=== PATIENT | male | born 1970 | race Caucasian/White ===

== ENCOUNTER 2023-06-20 15:40 | Outpatient (OUT) | payer OTHER, MEDICAID, SELFPAY ==
--- NOTE | 2023-06-20 15:56 | US_ITS ---
[address] [address] Patient Name: KATERYNA HERRING MRN: [id number] date: 1970 Sex: M Assigned Patient Location: Current Patient Location: Accession/Order Number: [id number] Exam Date: 06/20/2023 16:00 Report Date: 06/21/2023 07:06 At the request of: CECILY NUNES Procedure: US carotid duplex BI EXAMINATION: US carotid duplex BI HISTORY: bilateral Carotid bruits R09.89 COMPARISON: No relevant comparison available. TECHNIQUE: Duplex Doppler ultrasound analysis of carotid and vertebral arteries. . Bilateral carotid arterial duplex examination was performed using B-mode, color flow and spectral analysis. Carotid stenosis is reported according to validated velocity parameters, similar to NASCET criteria. FINDINGS: RIGHT CAROTID ARTERY Mild atherosclerotic plaque Subclavian: PSV: 241.2 cm/s cm/s EDV: 0.0 cm/s cm/s CCA: Prox: PSV: 130.7 cm/s cm/s EDV: 36.0 cm/s cm/s Mid: PSV: 112.2 cm/s cm/s EDV: 29.4 cm/s cm/s Distal: PSV: 69.8 cm/s cm/s EDV: 21.9 cm/s cm/s BULB: PSV: 59.4 cm/s cm/s EDV: 16.7 cm/s cm/s ICA: Prox: PSV: 116.0 cm/s cm/s EDV: 50.9 cm/s cm/s Mid: PSV: 136.2 cm/s cm/s EDV: 52.5 cm/s cm/s Distal: PSV: 143.1 cm/s cm/s EDV: 57.2 cm/s cm/s ECA: PSV: 159.3 cm/s cm/s EDV: 26.9 cm/s cm/s VERTEBRAL: PSV: 56.7 cm/s cm/s EDV: 14.9 cm/s cm/s, antegrade ICA/CCA ratio: PSV: 1.3 EDV: 1.9 LEFT CAROTID ARTERY Mild atherosclerotic plaque. 59% area stenosis in the carotid bulb Subclavian: PSV: 274.2 cm/s cm/s EDV: 14.0 cm/s CCA: Prox: PSV: 149.4 cm/s cm/s EDV: 32.3 cm/s Mid: PSV: 122.2 cm/s cm/s EDV: 38.6 cm/s Distal: PSV: 97.9 cm/s cm/s EDV: 31.7 cm/s BULB: PSV: 62.0 cm/s cm/s EDV: 20.6 cm/s ICA: Prox: PSV: 158.1 cm/s cm/s EDV: 48.2 cm/s Mid: PSV: 164.1 cm/s cm/s EDV: 63.8 cm/s Distal: PSV: 125.1 cm/s cm/s EDV: 52.6 cm/s ECA: PSV: 356.9 cm/s cm/s EDV: 56.5 cm/s VERTEBRAL: PSV: 49.4 cm/s cm/s EDV: 24.1 cm/s , antegrade ICA/CCA ratio: PSV: 1.3 EDV: 1.7 US/US carotid duplex BI IMPRESSION: 0-49% flow stenosis bilateral internal carotid arteries 59% area stenosis measured in the left carotid bulb Spectral Doppler US Thresholds (Reference: Pankaj EG, et al. Radiology 2000; 214:247-252) Stenosis (%) PSV (cm/sec) VICA/VCCA 0-49 <150 <2.5 50-69 150-225 2.5-4.0 >70 >225 >4.0 Electronically authenticated by: IRMA DU Date: 06/21/2023 07:06
[2023-06-20 16:13] LABS: Basophils Percent Auto 0.4 % (0.2-2.0); Eosinophils Absolute Auto 0.1 10^3/uL (0.0-0.7); Eosinophils Percent Auto 1.3 % (0.9-7.0); Hematocrit 44.8 % (42.0-54.0); Hemoglobin 15.7 g/dL (14.0-18.0); Immature Granulocytes Abs Auto 0.01 10^3/uL (0.00-0.03); Immature Granulocytes Pct Auto 0.1 % (0.0-0.5); Lymphocytes Percent Auto 24.5 % (20.5-60.0); Mean Corpuscular Hemoglobin 30.8 pg (25.9-34.0); Mean Corpuscular Volume 87.8 fL (80.0-94.0); Monocytes Absolute Auto 0.5 10^3/uL (0.3-0.8); Monocytes Percent Auto 5.9 % (1.7-12.0); Neutrophils Absolute Auto 5.5 10^3/uL (1.4-6.5); Neutrophils Percent Auto 67.8 % (43.0-75.0); Platelet Count 253 10^3/uL (150-450); Red Cell Distribution Width 12.7 % (11.0-15.0); White Blood Count 8.2 10^3/uL (4.0-11.0)
[2023-06-20 16:44] LABS: Alanine Aminotransferase 27 U/L (16-63); Albumin Level 3.7 g/dL (3.4-5.0); Alkaline Phosphatase 120 U/L (46-116); Anion Gap 9.8; Aspartate Amino Transferase 24 U/L (15-37); Bilirubin Total 0.9 mg/dL (0.2-1.0); Calcium 8.8 mg/dL (8.5-10.1); Carbon Dioxide 28.2 mmol/L (21.0-32.0); Chloride 107 mmol/L (98-107); Chol HDL Ratio 3.7; Cholesterol 163 mg/dL (<=200); Estimated GFR (African America >60 (>=60); Estimated GFR (Non-African Ame >60 (>=60); Globulin 3.7 g/dL; Glucose 81 mg/dL (74-106); HDL Cholesterol 44 mg/dL (40-60); LDL Cholesterol Calculated 107.2 mg/dL; Sodium 141 mmol/L (136-145); Total Protein 7.4 g/dL (6.4-8.2); Triglycerides 59 mg/dL (<=150); VLDL CHOLESTEROL 11.8 mg/dL
[2023-06-20 17:04] LABS: Prostate Specific Antigen Scrn 0.24 ng/mL (<=4.00)
== END 2023-06-20 15:41 | disposition home or self-care (01) ==
LOC: US 15:40
PROVIDERS: PCP Internal Medicine; Visit Provider Internal Medicine
DX: Z00.00 Encounter for general adult medical examination without abnormal findings (principal); R09.89 Other specified symptoms and signs involving the circulatory and respiratory systems; Z12.5 Encounter for screening for malignant neoplasm of prostate
CPT/HCPCS: 36415; 80053; 80061; 85025; 93880; G0103

== ENCOUNTER 2024-07-10 08:17 | Outpatient (OUT) | payer MEDICAID, SELFPAY ==
--- OUTSIDE RECORDS SUMMARY | 2024-07-10 08:22 | XMS_ITS | CCD ---
Author Organization [facility] Inform ion Partnership [facility] Care Team Providers Care Manager Fire Name Role Phone JAYDON, DR TONY Attending Unavailable JAYDON, DR TONY Consulting Unavailable JAYDON, DR TONY Admitting Unavailable ALBERTO, DR DENISE Gilliam Consulting Pedro Luis Arora Unavailable Pedro Luis Interiano MD Primary Care Provider AIDAN HEREDIA Attending AIDAN Mazariegos Attending Unavailable AIDAN HEREDIA Attending Unavailable PEDRO LUIS INTERIANO Primary Care Physician Amelia Adame Admitting Amelia Anderson Attending Lisbetha Amelia Abraham Referring Unavaila Lulu Perez Attending Unavailable Allergies Allergy Classification Reported Allergen(s) Allergy Type Date of Onset Reaction(s) Facility (3 sources) patient allergy list reviewed by nurse or physicia Propensity to adverse reactions 8 Comment:Done [facility]OP[facility] Other (2 sources) No Known Medication Allergies; Translations: [No Known Medication Allergies] Propensity to adverse reactions (disorder) [facility] Repository Medications Current Medications Medication Drug Class(es) Dates Sig (Normalized) Sig (Original) [id number] 200 actuat albuterol 0.09 mg/actuat metered dose inhaler (10 sources) beta2-Adrenergic Agonist Start: 06-03-2023 take 1 puff(s) by inhalation every four hours as needed albuterol HFA 90 mcg/act inhaler INHALE 1 PUFF INTO THE LUNGS EVERY 4 HOURS NEEDED FOR 30 DAYS 0 06/03/2023 Active take 1 puff(s) by in halation every four hours as needed Albuterol Sulfate HFA 108 (90 Base) MCG/ACT 1 puff as needed Inhalation every 4 hrs for 30 days Active take 1 puff(s) by in halation every four hours as needed Albuterol Sulfate HFA 108 (90 Base) MCG/ACT 1 puff as needed Inhalation every 4 hrs Active take 1 puff(s) by in halation every four hours as needed Albuterol Sulfate HFA 108 (90 Base) MCG/ACT 1 puff as needed Inhalation every 4 hrs Active albuterol HFA 90 mcg/inh MDI (2 sources) Start: 09-12-2020 albuterol HFA 90 mcg/inh MDI Refill(s) 0, 0 Refill(s), Shortness of breath or wheezing Start Date: 09/12/20 Status: Ordered Start: 09-12-2020 albuterol HFA 90 mcg/inh MDI Refill(s) 0, 0 Refill(s) Start Date: 09/12/20 Status: Ordered 60 actuat budesonide 0.08 mg/actuat / formoterol fumarate 0.0045 mg/actuat metered dose inhaler (12 sources) Corticosteroid, beta2-Adrenergic Agonist take 2 puff(s) by inhalation once daily Symbicort 80-4.5 MCG/ACT 2 puffs Inhalation Once a day Active take 1 puff(s) by [facility] every twelve hours Budesonide-Formoterol Fumarate 80-4.5 MC G/ACT INHALE 1 PUFF BY MOUTH EVERY 12 HOURS Active take 2 puff(s) by in halation once daily Symbicort 80-4.5 MCG/ACT 2 puffs Inhalat ion Once a day Active take 1 puff(s) by [facility] every twelve hours Budesonide-Formoterol Fumarate 80-4.5 MC G/ACT INHALE 1 PUFF BY MOUTH EVERY 12 HOURS for 60 Active budesonide-formoterol 80 mcg -4.5 mcg/inh Inh Aer w/adapter (2 sources) Start: 08-28-2021 budesonide-for moterol 80 mcg-4.5 mcg/inh Inh Aer w/adapter 2 puff(s), Inhalation, Refill(s) 0, 0 Refill(s), Shortness of breath or wheezing Start Date: 08/28/21 Status: Ordered Start: 08-28-2021 budesonide-for moterol 80 mcg-4.5 mcg/inh Inh Aer w/adapter Refill(s) 0, 0 Refill(s) Start Date: 08/28/21 Status: Ordered doxycycline hyclate 100 mg oral capsule (7 sources) Tetracycline-class Drug Start: 10-01-2022 take 1 capsule by mouth twice daily Doxycycline Hyclate 100 MG 1 capsule Orally twice daily for 7 days September, Active omeprazole 40 mg delayed release oral capsule (1 source) Proton Pump Inhibitor Start: 12-27-2023 take 1 capsule by mouth once daily omeprazole 40 mg Cap-DR 40 mg = 1 cap(s), Oral, Daily, # 90 cap(s), Refills(s) 3, Pharmacy: [facility]/pharmacy #[id number], 182, cm, 12/27/23 9:54:00 EDT, Height/Length Dosing, 96.1, kg, 12/27/23 9:54:00 EDT, Weight Dosing Start Date: 12/27/23 Status: Ordered ondansetron 4 mg disintegrating oral tablet (6 sources) Serotonin-3 Receptor Antagonist take 1 tablet by mouth every six hours as needed for nausea Ondansetron 4 MG 1 tablet on the tongue and allow to dissolve Orally every 6 hours as needed for nausea for 3 days Active pantoprazole 40 mg delayed release oral tablet (9 sources) Proton Pump Inhibitor Start: 09-10-[address] Tab 40 mg = 1 tab(s), Oral, Daily, Refills(s) 0, Control of stomach acid Start Date: 09/10/23 Status: Ordered take 1 tablet by dinora th every twenty-four hours Pantoprazole Sodium 40 MG 1 tablet Orall y Once a day Active PARoxetine hydrochloride 40 mg oral tablet (11 sources) Serotonin Reuptake Inhibitor Start: 09-10-2023 take 1 tablet by mouth once daily paroxetine 40 mg Tab 40 mg = 1 tab(s), Oral, Daily, Refills(s) 0 Start Date: 09/10/23 Status: Ordered Start: 03-28-2023 take 1 tablet by dinora th in the morning PARoxetine (Paxil) 40 MG tablet Take 40 mg by mouth in the morning. 0 03/28/2023 Active Completed/Discontinued Medications Medication Drug Class(es) Dates Sig (Normalized) Sig (Original) 24 hr metoprolol succinate 50 mg extended release oral tablet (9 sources) beta-Adrenergic Cherri Start: 09-09-2023 Toprol XL 50 mg Tab-ER 50 mg = 1 tab(s), Oral, Daily, 0 Refill(s), Refills(s) 0 Start Date: 09/09/23 Status: Ordered take 1 tablet by dinora every twelve hours Metoprolol Tartrate 50 MG 1 tablet with food Orally Twice a day Active Problems Active Problems Problem Classification Problem Date Documented Da te Episodic/Chronic Acute bronchitis (13 sources) Acute bronchitis due to other specified organisms; Translations: [Acute bronchitis] Onset: 6 Resolved: 1 Episodic Anxiety disorders (13 sources) Generalized anxiety disorder; Translations: [Generalized anxiety disorder] Chronic Asthma (6 sources) Uncomplicated asthma; Translations: [Unspecified asthma, uncomplicated] Onset: 4 Chronic Chronic obstructive pulmonary disease and bronchiectasis (20 sources) Mucopurulent chronic bronchitis; Translations: [Mucopurulent chronic bronchitis] Resolved: 1 Chronic Disorders of teeth and jaw (6 sources) Jaw pain; Translations: [Jaw pain] Episodic Esophageal disorders (20 sources) Gastroesophageal reflux disease without esophagitis; Translations: [Gastro-esophageal reflux disease without esophagitis] Onset: 4 Chronic Esophageal disorders (3 sources) Esophageal disorders; Translations: [Gastroesophageal reflux disease with esophagitis without hemorrhage] Essential hypertension (4 sources) Essential hypertension; Translations: [Essential (primary) hypertension] Chronic Gastrointestinal hemorrhage (3 sources) Hemorrhage of rectum and anus; Translations: [Hemorrhage of anus and rectum] Onset: 4 Episodic Mood disorders (20 sources) Major depression in remission; Translations: [Major depressive disorder, single episode, in full remission] Onset: 9 Chronic Other and unspecified benign neoplasm (3 sources) History of polyp of colon; Translations: [Personal history of colonic polyps] Onset: 4 Episodic Other and unspecified benign neoplasm (1 source) Polyp of colon; Translations: [Polyp of colon] Onset: 4 Episodic Other circulatory disease (3 sources) Thromboangiitis obliterans; 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 Other circulatory disease (1 source) 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 Other circulatory disease (1 source) Other specified symptoms and signs involving the circulatory and respiratory systems Episodic Other connective tissue disease (2 sources) Pain of toe of left foot; Translations: [Pain in left toe(s)] 06-28-2023 Episodic Other ear and sense organ disorders (6 sources) Otalgia; Translations: [Otalgia, right ear] Episodic Other lower respiratory disease (13 sources) H/O: respiratory disease; Translations: [Personal history of other diseases of the respiratory system] Episodic Other nervous system disorders (13 sources) Lesion of ulnar nerve; Translations: [Lesion of ulnar nerve, 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 Other nutritional; endocrine; and metabolic disorders (6 sources) Overweight; Translations: [Overweight] Episodic Other screening for suspected conditions (not mental disorders or infectious disease) (3 sources) Encounter for screening for malignant neoplasm of prostate; Translations: [Encounter for screening for malignant neoplasm of colon] Onset: Episodic Other skin disorders (2 sources) Ingrowing nail; Translations: [Ingrowing nail] 06-28-2023 Episodic Peripheral and visceral atherosclerosis (6 sources) Vascular disease of the skin; Translations: [Vascular disorder of skin] Onset: 6 Chronic Skin and subcutaneous tissue infections (2 sources) Abscess of toe of left foot; Translations: [Cutaneous abscess of left foot] 06-28-2023 Episodic Substance-related disorders (20 sources) Tobacco user; Translations: [Nicotine dependence, cigarettes, uncomplicated] Onset: 4 Chronic Unclassified (2 sources) Patient encounter status 09-10-2023 Past or Other Problems Problem Classification Problem Date Documented Da te Episodic/Chronic Bacterial infection; unspecified site (6 sources) Bacterial infectious disease; Translations: [Bacterial infection, unspecified, in conditions classified elsewhere and of unspecified site] Onset: 10-25-2015 Episodic Other lower respiratory disease (1 source) Personal history of other diseases of the respiratory system; Translations: [PERS HX OTH DZ RESPIRATORY SYSTEM] Onset: 12-01-2021 Episodic Other nutritional; endocrine; and metabolic disorders (12 sources) Body mass index 25-29 - overweight; Translations: [Body mass index 28.0-28.9, adult] Onset: 06-28-2017 Resolved: 12-05-2020 Episodic Other skin disorders (6 sources) Sebaceous cyst; Translations: [Sebaceous cyst] Onset: 04-02-2013 Episodic Other upper respiratory infections (6 sources) Acute pharyngitis; Translations: [Acute pharyngitis, unspecified] Onset: 12-14-2013 Episodic Residual codes; unclassified (12 sources) Tobacco user; Translations: [Tobacco use] Onset: 12-14-2013 Episodic Results Test Name Value Interpretation Reference Range Facility Provider Letteron 01-17-2024 Provider Letter Provider Letter January 17, 2024 KATERYNA HERRING [address] [place] [id number] : 1970 Dear Kateryna, We have been trying to reach you with no success. It is important that you return our call regarding your endoscopy procedure upon receiving this letter. Also, at the time of your call, please provide us with your current information. Thank you for your prompt attention to this matter. Sincerely, [facility] Patient Letter FTMCon 2023 Patient Letter [facility] Patient Letter [facility] January 03, 2024 KATERYNA HERRING [address] [place] [id number] : 1970 Below is a summary of the results of your recent colonoscopy. Your results have been sent to your primary care provider along with recommendations on when the procedure should be repeated. COLONOSCOPY WITH POLYP REMOVAL OR BIOPSY Type of polyp hyperplastic polyps - benign - not considered precancerous Based on your results we are recommending you repeat the procedure in 3 years Please contact the office with any further questions or concerns or if you wish to make an appointment. [facility] [phone] [facility] Reminderson 01-03-2024 Reminders Reminders From: Yumiko Dougherty I To: [facility] - Reminders/Recalls; Sent: 01/03/2024 10:09:06 EDT Show up: 10/25/2026 10:09:00 EDT Subject: Colonoscopy recall Reminder/Recall 3 year colonoscopy recall - h/o polyps Dr. 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 Note: IHC stains are negative for Helicobacter pylori. Appropriate controls are performed and reviewed. B: POLYP, CECUM, POLYPECTOMY: Hyperplastic polyp. C: POLYP, DESCENDING COLON, POLYPECTOMY: Hyperplastic polyp. D: POLYP, SIGMOID COLON, POLYPECTOMY: Fragments of hemorrhagic colonic mucosa consistent with hyperplastic polyp (Electronic Signature) Shad Shearer MD 12/31/2023 11:08 Clinical Information BRBPR, history of colon polyps, screening Pre-Op Diagnosis: BRBPR, history of colon polyps, screening Procedure: EGD, colonoscopy Post-Op Diagnosis: 1. Small internal and external hemorrhoids 2. 3 mm sessile polyp in the cecum, resected with cold snare completely and retrieved 3. 2 small polyps in the descending and sigmoid colon, 4-7 mm in size, resected with cold snare completely and retrieved 4. Normal examined terminal Specimen(s) Received A.Gastric biopsy B.Cecum colon polyp C.Descending colon polyp D.Sigmoid colon polyp Gross Description A: Received in formalin labeled with patient name, number, and gastric biopsy are three fragments of godinez/pink tissue ranging from 0.1 cm up to 0.3 cm in greatest dimension. Specimen is entirely submitted in one cassette. B: Received in formalin labeled with patient name, number, and cecum colon polyp are multiple fragments of godinez tissue ranging from less than 0.1 cm up to 0.2 cm in greatest dimension. Specimen is entirely submitted in one cassette. C: Received in formalin labeled with patient name, number, and descending colon polyp is a single fragment of godinez/pink tissue measuring 0.8 x 0.4 x 0.1 cm. Specimen is entirely submitted in one cassette. Surgical Pathology Report Collected Date/Time: 12/27/2023 10:19 EDT Pathologist: Shad Shearer MD Received Date/Time: 12/27/2023 11:24 EDT Deep DACOSTA, Amelia Lance MD Gross Description D: Received in formalin labeled with patient name, number, and sigmoid colon polyp are two fragments of godinez/pink tissue measuring 0.5 and 1 cm. Specimen is entirely submitted in one cassette. (DC) DC:MCA Microscopic Description Microscopic examination performed unless gross only specified. The use of one or more reagents in the above tests is regulated as an analyte specific reagent (ASR). The test or tests are ordered following initial H&E microscopic examination. The performance characteristics were determined by the [facility] of [facility]. They have not been cleared or approved by the US Food and Drug Administration. The FDA has determined that such clearance or approval is not necessary. These tests are used for clinical purposes. They should not be regarded as investigational or for research. Appropriate positive and negative controls are performed and are acceptable. [facility] Comment on above: Performed By: #### [id number] #### [facility] [address] [place] [address] Main OR Intraoperative Recor don 12-30-2023 Main OR Intraoperative Record Main OR Intraoperative Record IntraOp Document Type FT Summary Primary Physician: Amelia Adame MD Finalized Date/Time: 12/30/23 09:44:40 Pt. Name: KATERYNA HERRING/Sex: 1970 Male Med Rec #: [id number] Physician: Amelia Adame MD Financial #: [id number] Pt. Type: O Room/Bed: / Admit/Disch: 12/27/23 09:37:34 - 12/27/23 23:59:59 Institution: Case Times FT Entry 1 Patient Times In Room 12/27/23 10:10:00 Out Room 12/27/23 10:51:00 Procedure Times Start 12/27/23 10:14:00 Stop 12/27/23 10:48:00 Anesthesia Times Start 12/27/23 10:10:00 Stop 12/27/23 10:51:00 Time at Cecum 12/27/23 10:23:00 Last Modified By: Lavinia Leary RN 12/27/23 10:50:56 General Comments: EGD end time at 1018./YAO,RN Colonoscopy start time at 1020./KS,RN 12/30/23 Chart opened to review and send charges [facility]oth CSFA Case Attendance FT Entry 1 Entry 2 Entry 3 Case Attendee Geo RECOVERY RN, Mario Alberto Fisher, Cindy Taylor NURSING SUPPORT WORKER, Анна Dolan Role Performed RECOVERY RN Scrub - Primary Staff - Other Time In 12/27/23 10:10:00 12/27/23 10:10:00 12/27/23 10:10:00 Time Out 12/27/23 10:51:00 12/27/23 10:51:00 12/27/23 10:51:00 Procedure EGD AND COLONOSCOPY(.) EGD AND COLONOSCOPY(.) EGD AND COLONOSCOPY(.) Comments Dr. Morgan is supervising Last Modified By: Gibran SHARPE, Lavinia Leary RN, Lavinia Dougherty RN 12/27/23 10:50:57 12/27/23 10:50:57 12/27/23 10:50:57 Entry 4 Entry 5 Case Attendee Deep DACOSTA, Lavinia Goldman RN Role Performed Surgeon - Primary Emergency Crew Supervisor - Primary Time In 12/27/23 10:10:00 12/27/23 10:10:00 Time Out 12/27/23 10:51:00 12/27/23 10:51:00 Procedure EGD AND COLONOSCOPY(.) EGD AND COLONOSCOPY(.) Comments Dr. Morgan is supervising Last Modified By: Gibran SHARPE, Lavinia Doughrety RN 12/27/23 10:50:57 12/27/23 10:50:57 Perioperative Protocols FT Pre-Care Text: Implements protective measures prior to operative or invasive procedure, confirms identity before the operative or invasive procedure, verifies operative procedure, surgical site, and laterality Entry 1 Procedure(s) EGD AND COLONOSCOPY(.) Patient Identity Birthday, ID Band Verified (select at Check, Patient least 2): Participation Consents / H and P Anesthesia Consent, Operative Site N/A Verified H&P, Surgery/Procedure Marking Verified Consent Surgical Site No Laterality Verified n/a Verified Procedure Verified Yes Correct Patient Yes Position Verified Availability Equipment, Medication Prep Dry n/a Verified (If Applicable) PreOp Antibiotic No Time Out Mario Alberto Guardado CRNA, Given Participants Cindy Fisher, Brandon BRUCE, Deep Locke MD, Amelia Lipscomb, Lavinia Leary RN Time Out Complete 12/27/23 10:13:00 Outcomes Met? Yes Last Modified By: Lavinia Leary RN 12/27/23 10:13:40 Post-Care Text: The patient is free from signs and symptoms of injury caused by extraneous objects Allergy Information FT Pre-Care Text: Verifies allergies Entry 1 Allergies Reviewed? Yes Allergies Reviewed Self/Patient With Outcomes Met? Yes Last Modified By: Lavinia Leary RN 12/27/23 10:13:47 Post-Care Text: The patient received appropriate medication(s) safely administered during the perioperative period Surgical Procedures FT Entry 1 Procedure Description Procedure EGD AND COLONOSCOPY Modifiers . Surgeon Description EGD with gastric biopsy. Colonoscopy with cecal colon polypectomy, descending colon polypectomy and sigmoid colon polypectomy. Primary Procedure Yes Primary Surgeon Deep DACOSTA, Amelia Lipscomb Start 12/27/23 10:14:00 Stop 12/27/23 10:48:00 Anesthesia Type General Surgical Service Gastroenterology Wound Class 2 - Clean-Contaminated Last Modified By: Lavinia Leary RN 12/27/23 10:49:12 General Case Data FT Pre-Care Text: Classifies surgical wound, implements aseptic technique, initiates traffic control Entry 1 Case Information OR ENDO 1 FT Case Level Level 2 Wound Class 2 - Clean-Contaminated Specialty Gastroenterology ASA Class 2 Preop Diagnosis BRBPR, history of colon Postop Same As Preop No polyps, screening Postop Diagnosis EGD- Gastritis and Outcomes Met? Yes gastric body ulcers. Colonoscopy- AVM in ascending colon, cecal polyp, descending polyp, internal hemorrhoids, sigmoid colon polyp, external hemorrhoids. Last Modified By: Lavinia Leary RN 12/27/23 10:49:35 Post-Care Text: The patient is free from signs and symptoms of infection Skin Assessment (Pre Procedure) FT Pre-Care Text: Implements protective measures to prevent skin/ tissue injury due to thermal or mechanical sources Evaluates for signs and symptoms of physical injury to skin and tissue Entry 1 Skin Integrity Intact, Cushing, Warm, & Skin Abnormality No Dry Outcomes Met? Yes Last Modified By: Gibran SHARPE, Lavinia Bronson (more content not included)... [facility] Discharge Instructionson Discharge Instructions Discharge Instructions KATERYNA HERRING :1970 Visit Date:12/27/2023 Inpatient Discharge Instructions Your Care Team Admitting Physician - Amelia Adame MD Referring Physician - Amelia Adame MD Reason for Your Visit BRBPR, HX OF COLON POLYPS, SCREEN FOR COLON CANCER Your Diagnosis Chronic GERD Colon polyps Tests Performed Pathology Tissue Exam -- Results Pending -- Please visit your patient portal for your results or contact your primary care physician. This Is Your Medications List albuterol (albuterol HFA 90 mcg/inh MDI) budesonide-formoterol (budesonide-formoterol 80 mcg-4.5 mcg/inh Inh Aer w/adapter) metoprolol (Toprol XL 50 mg Tab-ER) omeprazole (omeprazole 40 mg Cap-DR) pantoprazole (Pantoprazole [address] Tab) paroxetine (paroxetine 40 mg Tab) Procedure History Colonoscopy (12/27/2023), Esophagogastroduodenoscopy (12/27/2023), Colonoscopy. What to do next Instructions From Your Doctor Event Name Event Result Discharge Activity Resume normal activities in 24 hours Discharge Restrictions No driving for 24 hrs Discharge Diet(s) Regular Call Your Doctor For Persistent or heavy bleeding Discharge Instructions Discharge Instructions New Follow Up Appointments after Discharge Follow Up with Deep DACOSTA, Amelia Lipscomb, [facility] When: Comments: Call for any problems. Office will call to schedule follow up appointment Where: Medications What How Much When Instructions Next Dose New omeprazole (omeprazole 40 mg Cap-DR) 1 Capsules By Mouth Every day Refills: 3 Pickup at [facility]/pharmacy #[id number] Unchanged albuterol (albuterol HFA 90 mcg/ inh MDI) 0 Refill(s) Unchanged budesonide-formoterol (budesonide-formoterol 80 mcg-4.5 mcg/ inh Inh Aer w/ adapter) 2 Puffs Inhalation 0 Refill(s) Unchanged metoprolol (Toprol XL 50 mg Tab-ER) 1 Tablets By Mouth Every day 0 Refill(s) Unchanged pantoprazole (Pantoprazole [address] Tab) 1 Tablets By Mouth Every day Unchanged paroxetine (paroxetine 40 mg Tab) 1 Tablets By Mouth Every day Pharmacy Information [facility]/pharmacy #[id number]: [address], [place] [phone] Test Results No qualifying data available. Allergies No Known Medication Allergies Problems Ongoing - Any problem that you are currently receiving treatment for. Acid reflux BRBPR (bright red blood per rectum) History of colon polyps Screen for colon cancer Education Materials Gastritis, Adult Gastritis is irritation and swelling (inflammation) of the stomach. There are two kinds of gastritis: ? Acute gastritis. This kind develops quickly. ? Chronic gastritis. This kind is much more common. It develops slowly and lasts for a long time. It is important to get help for this condition. If you do not get help, your stomach can bleed, and you can get sores (ulcers) in your stomach. What are the causes? This condition may be caused by: ? Germs that get to your stomach and cause an infection. ? Drinking too much alcohol. ? Medicines you are taking. ? Having too much acid in the stomach. ? Having a disease of the stomach. Other causes may include: ? An allergic reaction. ? Some cancer treatments (radiation). ? Smoking cigarettes or using products that contain nicotine or tobacco. In some cases, the cause of this condition is not known. What increases the risk? ? Having a disease of the intestines. ? Having Crohn's disease. ? Using aspirin or ibuprofen and other NSAIDs to treat other conditions. ? Stress. What are the signs or symptoms? ? Pain in your stomach. ? A burning feeling in your stomach. ? Feeling like you may vomit (nauseous). ? Vomiting or vomiting blood. ? Feeling too full after you eat. ? Weight loss. ? Bad breath. ? Blood in your poop (stool). In some cases, there are no symptoms. How is this treated? This condition is treated with medicines. The medicines that are used depend on what caused the condition. You may be given: ? Antibiotic medicine, if your condition was caused by an infection from germs. ? H2 blockers and similar medicines, if your condition was caused by too much acid in the stomach. Treatment may also include stopping the use of certain medicines, such as aspirin or ibuprofen. Follow these instructions at home: Medicines ? Take eapg-ugk-jecqxgx and prescription medicines only as told by your doctor. ? If you were prescribed an antibiotic medicine, take it as told by your doctor. Do not stop taking it even if you start to feel better. Alcohol use ? Do not drink alcohol if: ? Your doctor tells you not to drink. ? You are , may be , or are planning to become . ? If you drink alcohol: ? Limit your use to: ? 0?1 drink a day for women. ? 0?2 drinks a day for men. ? Know how much alcohol is in yo (more content not included)... [facility] Comment on above: Result Comment: Elec tronically Signed By: Wandy Cruz I\.br\Date and Time Signed: 12/27/23 11:04 EDT Inpatient Patient Summaryon 12-27-2023 Inpatient Patient Summary Inpatient Patient Summary [place] [id number] [facility] Clinical Discharge Instructions PERSON INFORMATION Name: KATERYNA HERRING [facility]#:[id number] PHYSICIANS Admitting Physician: Amelia Adame MD Attending Physician: Amelia Adame MD PCP: PEDRO LUIS INTERIANO DO Discharge Diagnosis: Chronic GERD; Colon polyps Comment: PATIENT EDUCATION INFORMATION Instructions: Medication Leaflets: Follow up: MEDICATION LIST Medications to Continue with No Changes Other Medications albuterol (albuterol HFA 90 mcg/inh MDI) 0 Refill(s). budesonide-formoterol (budesonide-formoterol 80 mcg-4.5 mcg/inh Inh Aer w/adapter) 2 Puffs Inhalation. 0 Refill(s). metoprolol (Toprol XL 50 mg Tab-ER) 1 Tablets By Mouth every day. 0 Refill(s). pantoprazole (Pantoprazole [address] Tab) 1 Tablets By Mouth every day. paroxetine (paroxetine 40 mg Tab) 1 Tablets By Mouth every day. Comment: [facility] Main OR PACU I Recordon Main OR PACU I Record Main OR PACU I Record PACU Phase I Document Type FT Summary Primary Physician: Amelia Adame MD Finalized Date/Time: 12/27/23 11:36:30 Pt. Name: ARTIE HERRINGTABITHA Corbett/Sex: 1970 Male Med Rec #: [id number] Physician: Amelia Adame MD Financial #: [id number] Pt. Type: O Room/Bed: / Admit/Disch: 12/27/23 09:37:34 - Institution: Case Times PACU I FT Pre-Care Text: Identifies barriers to communication and implements measures to provide psychological support Develops individualized plan of care, and ensures continuity of care Maintains patient's dignity and privacy, and maintains patient confidentiality Identifies and reports philosophical, cultural, and spiritual beliefs and values Identifies individual values and wishes concerning care Implements aseptic technique, and administers prescribed antibiotic therapy and immunizing agents as ordered Evaluates postoperative tissue perfusion Implements thermoregulation measures, and monitors body temperature Evaluates postoperative respiratory status Evaluates postoperative cardiac status Evaluates postoperative neurological status Assesses pain control, collaborated in initiating patient-controlled analgesia and implements alternative methods of pain control Verifies allergies, administers prescribed medications and solutions, evaluates response to medications Entry 1 In PACU I 12/27/23 10:55:00 Discharge from PACU 12/27/23 11:25:00 I Outcomes Met? Yes Last Modified By: Wandy Cruz I 12/27/23 11:36:15 Post-Care Text: The patient demonstrates knowledge of the expected response to the operative or invasive procedure The patient's care is consistent with the individualized perioperative plan of care The patient's right to privacy is maintained The patient's value system, lifestyle, ethnicity, and culture are considered, respected, and incorporated into the perioperative plan of care The patient participates in decisions affecting his or her perioperative plan of care The patient is free from signs and symptoms of infection The patient has wound/tissue perfusion consistent with or improved from baseline levels established preoperatively The patient is at or returning to normothermia at the conclusion of the immediate postoperative period The patient's respiratory function is consistent with or improved from baseline levels established preoperatively The patient's cardiovascular status is consistent with or improved from baseline levels established preoperatively The patient's cardiovascular status is consistent with or improved from baseline levels established preoperatively The patient demonstrates and/or reports adequate pain control throughout the perioperative period The patient received appropriate medication(s), safely administered during the perioperative period Acuity Level PACU I FT Entry 1 Start Time 12/27/23 10:55:00 Stop Time 12/27/23 11:25:00 Acuity Level Acuity Level I Last Modified By: Wandy Cruz I 12/27/23 11:36:27 Finalized By: Wandy Cruz I Document Signatures Signed By: Wandy Cruz I 12/27/23 11:36 [facility] Main OR Preoperative Recordo n 12-27-2023 Main OR Preoperative Record Main OR Preoperative Record Holding Area Document Type FT Summary Primary Physician: Amelia Adame MD Finalized Date/Time: 12/27/23 09:52:07 Pt. Name: KATERYNA HERRING/Sex: 1970 Male Med Rec #: [id number] Physician: Amelia Adame MD Financial #: [id number] Pt. Type: O Room/Bed: / Admit/Disch: 12/27/23 09:37:34 - Institution: Case Times Holding FT Pre-Care Text: Verifies consent for planned procedure, identifies individual values and wishes concerning care, includes family members in perioperative teaching Secures patient's records' belongings, and valuables, maintains patient's dignity and privacy, and maintains patient confidentiality Entry 1 In Holding 12/27/23 09:46:00 Outcomes Met? Yes Last Modified By: Eun Hayes RN 12/27/23 09:50:59 Post-Care Text: The patient participates in decisions affecting his or her perioperative plan of care The patient's right to privacy is maintained Surgery Checklist FT Entry 1 Patient Birthday, ID Band Procedure History and Physical, Identification: Check, Patient Verification: Surgical Consent, With Participation Patient NPO after Midnight: No Date/Time: 12/27/23 05:30:00 Results Reviewed clear yellow results Personal Items none Comments: Comment: Limitations: none Complaints of Pain: No Pain Comment: denies Operative Site n/a Marking: Availability Equipment Verified: Does Patient Smoke Yes If Yes to Smoking. 1 and half ppd Cigars or Cigarettes. How much per day? Patient states Yes Comment - Adult Son postop adult Supervision supervision available Case Cancelled in No Holding Area see comments below for reason Last Modified By: Eun Hayes RN 12/27/23 09:52:03 General Comments: Pt. NPO since bowel prep finished at 0530/AW RN Finalized By: Eun Hayes RN Document Signatures Signed By: Eun Hayes RN 12/27/23 09:52 [facility] Outpatient Surgery Discharge Instructionon 12-27-2023 Outpatient Surgery Discharge Instruction Outpatient Surgery Discharge Instruction [place] [id number] Patient Discharge Instructions PERSON INFORMATION Name: KATERYNA HERRING Date of : 1970 Current Date: 12/27/2023 10:09:33 PHYSICIANS Admitting Physician: Amelia Adame MD Discharge Diagnosis: Chronic GERD; Colon polyps KATERYNA HERRING has been given the following list of follow-up instructions, prescriptions, and patient education materials: PATIENT FOLLOW-UP INFORMATION Diet: Regular Discharge Activity: Resume normal activities in 24 hours Discharge Restrictions: No driving for 24 hrs Call Your Doctor For: Persistent or heavy bleeding IF UNABLE TO CONTACT YOUR PHYSICIAN AND YOU FEEL IT IS AN EMERGENCY, GO TO THE NEAREST EMERGENCY ROOM OR CALL 911 INEVAEH JEFFREY A, have received the attached patient education materials/instructions and have verbalized understanding: May we do a follow up call? Yes No I was present when discharge instructions were given _ Patient Signature Date Clinican/Nurse Signature Date Follow up: Pharmacy Information: You may receive a survey from Norah John asking you to rate your care experience. Your feedback is important and will help us understand what we do well and how we can improve the quality of care we provide to you, your loved ones and our community. It?s an honor to serve you. Thank you for choosing [facility] HERE ARE THE MEDICATION CHANGES THAT OCCURRED DURING YOUR HOSPITAL STAY Medications to Continue with No Changes Other Medications albuterol (albuterol HFA 90 mcg/inh MDI) 0 Refill(s). budesonide-formoterol (budesonide-formoterol 80 mcg-4.5 mcg/inh Inh Aer w/adapter) 2 Puffs Inhalation. 0 Refill(s). metoprolol (Toprol XL 50 mg Tab-ER) 1 Tablets By Mouth every day. 0 Refill(s). pantoprazole (Pantoprazole [address] Tab) 1 Tablets By Mouth every day. paroxetine (paroxetine 40 mg Tab) 1 Tablets By Mouth every day. PATIENT EDUCATION INFORMATION Instructions: Medication Leaflets: [place] Consent for Procedure/Surger yon 09-11-2023 Consent for Procedure/Surgery [id number] [place] Ambulatory Visit Summaryon 0 09-10-2023 Ambulatory Visit Summary KATERYNA HERRING :1970 Visit Date:09/10/2023 Ambulatory Visit Instructions Your Diagnosis History of colon polyps BRBPR (bright red blood per rectum) Screen for colon cancer Acid reflux Your Care Team Attending Physician - Lulu Silva CNP Primary Care Physician - PEDRO LUIS INTERIANO DO This Is Your Medications List Contact prescribing physician if questions or concerns albuterol (albuterol HFA 90 mcg/inh MDI) budesonide-formoterol (budesonide-formoterol 80 mcg-4.5 mcg/inh Inh Aer w/adapter) metoprolol (Toprol XL 50 mg Tab-ER) pantoprazole (Pantoprazole [address] Tab) paroxetine (paroxetine 40 mg Tab) Procedures Performed Colonoscopy. Discharge Vitals Temperature (Temporal Artery) 36.5 ?C Heart Rate (Peripheral) 62 Blood Pressure 128/66 Height 182.8 cm Height 72 in Weight 96.1 kg Weight 211.42 lb BMI 28.76 What to do next You Need to Schedule the Following Appointments Follow Up with Lulu Silva CNP When: Within 1 to 2 weeks Comments: Following colonoscopy. Where: Medications What When Instructions Unchanged albuterol (albuterol HFA 90 mcg/ inh MDI) 0 Refill(s) Contact prescribing physician if questions or concerns Unchanged budesonide-formoterol (budesonide-formoterol 80 mcg-4.5 mcg/ inh Inh Aer w/ adapter) 0 Refill(s) Contact prescribing physician if questions or concerns Unchanged metoprolol (Toprol XL 50 mg Tab-ER) 0 Refill(s) Contact prescribing physician if questions or concerns Unchanged pantoprazole (Pantoprazole [address] Tab) Contact prescribing physician if questions or concerns Unchanged paroxetine (paroxetine 40 mg Tab) Contact prescribing physician if questions or concerns Allergies No Known Medication Allergies Problems Ongoing - Any problem that you are currently receiving treatment for. Acid reflux BRBPR (bright red blood per rectum) History of colon polyps Screen for colon cancer Patient Survey You may receive a survey via text or e-mail asking about your office visit. Please share your experience with us by completing your survey. We appreciate your feedback and thank you for choosing us for your care. Education Materials Colonoscopy, Adult A colonoscopy is a procedure to look at the entire large intestine. This procedure is done using a long, thin, flexible tube that has a camera on the end. You may have a colonoscopy: ? As a part of normal colorectal screening. ? If you have certain symptoms, such as: ? A low number of red blood cells in your blood (anemia). ? Diarrhea that does not go away. ? Pain in your abdomen. ? Blood in your stool. A colonoscopy can help screen for and diagnose medical problems, including: ? An abnormal growth of cells or tissue (tumor). ? Abnormal growths within the lining of your intestine (polyps). ? Inflammation. ? Areas of bleeding. Tell your health care provider about: ? Any allergies you have. ? All medicines you are taking, including vitamins, herbs, eye drops, creams, and pbsr-lan-fjkmiqq medicines. ? Any problems you or family members have had with anesthetic medicines. ? Any bleeding problems you have. ? Any surgeries you have had. ? Any medical conditions you have. ? Any problems you have had with having bowel movements. ? Whether you are or may be . What are the risks? Generally, this is a safe procedure. However, problems may occur, including: ? Bleeding. ? Damage to your intestine. ? Allergic reactions to medicines given during the procedure. ? Infection. This is rare. What happens before the procedure? Eating and drinking restrictions Follow instructions from your health care provider about eating or drinking restrictions, which may include: ? A few days before the procedure: ? Follow a low-fiber diet. ? Avoid nuts, seeds, dried fruit, raw fruits, and vegetables. ? 1?3 days before the procedure: ? Eat only gelatin dessert or ice pops. ? Drink only clear liquids, such as water, clear juice, clear broth or bouillon, black coffee or tea, or clear soft drinks or sports drinks. ? Avoid liquids that contain red or purple dye. ? The day of the procedure: ? Do not eat solid foods. You may continue to drink clear liquids until up to 2 hours before the procedure. ? Do not eat or drink anything starting 2 hours before the procedure, or within the time period that your health care provider recommends. Bowel prep If you were prescribed a bowel prep to take by mouth (orally) to clean out your colon: ? Take it as told by your health care provider. Starting the day before your procedure, you will need to drink a large amount of liquid medicine. The liquid will cause you to have many bowel movements of loose stool until your stool becomes almost clear or light green. ? If your skin or the opening between the buttocks (deion (more content not included)... [facility] Gastroenterology Office/Clin ic Noteon 09-10-2023 Gastroenterology Office/Clinic Note Chief Complaint Colonoscopy HPI Staff This is a 53year old male who presents today to schedule a colonoscopy. Patient was referred by Dr Interiano. History of Present Illness Patient is a 53-year-old male who presents for referral from his PCP?Dr. Interiano for colonoscopy. PMH of HTN- managed by patient's PCP. Family history of colon cancer: Denies. Family history of colon polyps: Denies. Personal history of colon cancer: Denies. Personal history of colon polyps: Yes, per patient. Anticoagulation therapy: Denies. Antiplatelet therapy: Denies. During today's visit, patient reports he had previous EGD/Colonoscopy at various locations greater than 10 years ago. He reports on one of his colonoscopies, he recalls having a colon polyp. He reports most of the time when he has colonoscopy, he also has EGD. Reports hx. acid reflux for over 20 years. Is having 1 formed BM daily. Reports hx. hemorrhoids for years and will hard stools, will have BRBPR on toilet paper, occurring 2-3 times a week for years. Acid reflux is well-controlled with pantoprazole 40mg daily. Denies dysphagia, nausea/vomiting, black/bloody stools, abdominal pain, and denies unintentional weight loss. Review of Systems PHQ Score Initial Depression Screen Score: 0 SCORE ROS - Provider Constitutional: no fever, no chills. Skin: no Jaundice. ENMT: Denies dysphagia and heartburn. Respiratory: no shortness of breath. Cardiovascular: no chest pain. Gastrointestinal: no nausea, no vomiting, no diarrhea. Physical Exam Vitals & Measurements T: 36.5 ?C(Temporal Artery) HR: 62(Peripheral) BP: 128/66 HT: 72 in HT: 182.8 cm WT: 96.1 kg WT: 211.42 lb BMI: 28.76 General: Well developed, well nourished, in no acute distress Head: Normocephalic/atraumatic Lungs: Normal respiratory effort and clear to auscultation Cardio: Regular rate and rhythm, normal S1 and S2, no murmur, no rub Abdomen: Soft, non-distended, non-tender. Normoactive bowel sounds present in all 4 abdominal quadrants, bilaterally. Mental Status: Alert and oriented x3. Normal mood and affect Assessment/Plan 1. History of colon polyps (Z86.010: Personal history of colonic polyps) Reportedly had previous EGD/Colonoscopy at various locations greater than 10 years ago. He reports on one of his colonoscopies, he recalls having a colon polyp. Ordered Colonoscopy. Denies anticoagulation therapy. Ordered: Colonoscopy (Hospital Procedure) 2. BRBPR (bright red blood per rectum) (K62.5: Hemorrhage of anus and rectum) Reports hx. hemorrhoids for years and will hard stools, will have BRBPR on toilet paper, occurring 2-3 times a week for years. Ordered Colonoscopy. Educated regarding fiber supplementation daily. Patient to have rectal exam during colonoscopy while under deep sedation. Declines rectal exam today. Ordered: Colonoscopy (Hospital Procedure) 3. Screen for colon cancer (Z12.11: Encounter for screening for malignant neoplasm of colon) Ordered Colonoscopy. Denies anticoagulation therapy. Ordered: Colonoscopy (Hospital Procedure) 4. Acid reflux (K21.9: Gastro-esophageal reflux disease without esophagitis) Controlled with pantoprazole 40mg daily. Has had acid reflux for years. Previous EGD over 10 years ago. Ordered EGD to screen for mancini's esophagus given long-term acid reflux. Ordered: EGD Endoscopy (Hospital Procedure) Educated regarding miralax colon prep. Follow-up With When Contact Information Lulu Silva CNP Within 1 to 2 weeks Additional Instructions: Following colonoscopy. Patient Education Colonoscopy, Adult Problem List/Past Medical History Ongoing Acid reflux BRBPR (bright red blood per rectum) History of colon polyps Screen for colon cancer Historical No qualifying data Procedure/Surgical History Colonoscopy. Medications albuterol HFA 90 mcg/inh MDI budesonide-formoterol 80 mcg-4.5 mcg/inh Inh Aer w/adapter Pantoprazole [address] Tab paroxetine 40 mg Tab Toprol XL 50 mg Tab-ER Allergies No Known Medication Allergies Social History Tobacco 10 or more cigarettes (1/2 pack or more)/day in last 30 days Tobacco Use:. Never Smokeless Tobacco Use:. Cigarettes, 09/10/2023 Family History Heart murmur: Mother. [facility] Comment on above: Result Comment: Elec tronically Signed By: Lulu Silva CNP\.jairo\Date and Time Signed: 09/10/23 12:18 EDT Provider Letteron 08-28-2023 Provider Letter (Inserted Image. Charlene ble to display) August 28, 2023 KATERYNA HERRING [address] [place] [phone] : 1970 Dear Robin, We have been trying to reach you with no success. It is important that you return our call regarding your referral from Dr. Interiano to see [facility]. Please call the office upon receiving this letter to schedule a appointment. Also, at the time of your call, please provide us with your current information. Thank you for your prompt attention to this matter. Sincerely, [facility] [phone] [facility] CBC AUTO DIFFon 11-28-2021 BASO # 0.0 103/ul Normal 0.0-0.1 [facility] Comment on above: Performed By: #### C BC #### [facility] [address] [address] [address] Shirley Pandya Basophils/100 WBC (Bld) 0.5 % Normal 0.2-2.0 [facility] Comment on above: Performed By: #### C BC #### [facility] [address] [place] [address] Dr. Shirley Pandya EO # 0.2 103/ul Normal 0.0-0.7 [facility] Comment on above: Performed By: #### C BC #### [facility] [address] [address] [address] Shirley Pandya Eosinophils/100 WBC (Bld) 2.4 % Normal 0.9-7.0 [facility] Comment on above: Performed By: #### C BC #### [facility] [address] [place] [address] Dr. Shirley Pandya Erythrocyte distribution width (RBC) [Ratio] 12.8 % Normal 11.0-15.0 [facility] Comment on above: Performed By: #### C BC #### [facility] [address] [place] [address] Dr. Shirley Pandya Hematocrit (Bld) [Volume fraction] 47.3 % Normal 42.0-54.0 [facility] Comment on above: Performed By: #### C BC #### [facility] [address] [place] [address] Dr. Shirley Pandya Hemoglobin (Bld) [Mass/Vol] 16.2 g/dL Normal 14.0-18.0 [facility] Comment on above: Performed By: #### C BC #### [facility] [address] [place] [address] Dr. Shirley Pandya IG # 0.02 10e3/ul Normal 0.00-0.03 [facility] Comment on above: Performed By: #### C BC #### [facility] [address] [place] [address] Dr. Shirley Pandya IG % 0.3 % Normal 0.0-0.5 [facility] Comment on above: Performed By: #### C BC #### [facility] [address] [place] [address] Dr. Shirley Pandya LYMPH # 1.7 103/ul Normal 1.2-3.8 [facility] Comment on above: Performed By: #### C BC #### [facility] [address] [place] [address] Dr. Shirley Pandya Lymphocytes/100 WBC (Bld) 22.3 % Normal 20.5-60.0 [facility] Comment on above: Performed By: #### C BC #### [facility] [address] [place] [address] Dr. Shirley Pandya MANUAL DIFF REQ NO Normal [facility] Comment on above: Performed By: #### C BC #### [facility] [address] [place] [address] Dr. Shirley Pandya MCH (RBC) [Entitic mass] 30.0 pg Normal 25.9-34.0 [facility] Comment on above: Performed By: #### C BC #### [facility] [address] [place] [address] Dr. Shirley Pandya MCHC (RBC) [Mass/Vol] 34.2 g/dL Normal 29.9-35.2 [facility] Comment on above: Performed By: #### C BC #### [facility] [address] [address] [address] Shirley Pandya MCV (RBC) [Entitic vol] 87.6 fL Normal 80.0-94.0 [facility] Comment on above: Performed By: #### C BC #### [facility] [address] [address] [address] Shirley Pandya MONO # 0.5 103/ul Normal 0.3-0.8 [facility] Comment on above: Performed By: #### C BC #### [facility] [address] [place] [address] Dr. Shirley Pandya Monocytes/100 WBC (Bld) 6.6 % Normal 1.7-12.0 [facility] Comment on above: Performed By: #### C BC #### [facility] [address] [place] [address] Dr. Shirley Pandya NEUT # 5.1 103/ul Normal 1.4-6.5 [facility] Comment on above: Performed By: #### C BC #### [facility] [address] [place] [address] Dr. Shirley Pandya Neutrophils/100 WBC (Bld) 67.9 % Normal 43.0-75.0 [facility] Comment on above: Performed By: #### C BC #### [facility] [address] [place] [address] Dr. Shirley Pandya Platelet mean volume (Bld) [Entitic vol] 8.9 fL Critically low 9.5-13.5 [facility] Comment on above: Performed By: #### C BC #### [facility] [address] [place] [address] Dr. Shirley Pandya PLT 219 103/ul Normal 150-450 [facility] Comment on above: Performed By: #### C BC #### [facility] [address] [address] [address] Shirley Pandya RBC 5.40 106/ul Normal 4.70-6.10 [facility] Comment on above: Performed By: #### C BC #### [facility] [address] [place] [address] Dr. Shirley Pandya WBC 7.6 103/ul Normal 4.0-11.0 [facility] Comment on above: Performed By: #### C BC #### [facility] [address] [place] [address] Dr. Shirley Pandya PROF 14(COMP METB)on 022 Albumin [Mass/Vol] 3.6 g/dL Normal 3.4-5.0 [facility] Comment on above: Performed By: #### C MP #### [facility] [address] [place] [address] Dr. Shirley Pandya Albumin/Globulin [Mass ratio] 1.0 {ratio} Normal [facility] Comment on above: Performed By: #### C MP #### [facility] [address] [place] [address] Dr. Shirley Pandya ALP [Catalytic activity/Vol] 116 U/L Normal 46-116 [facility] Comment on above: Performed By: #### C MP #### [facility] [address] [place] [address] Dr. Shirley Pandya ALT [Catalytic activity/Vol] 24 U/L Normal 16-63 [facility] Comment on above: Performed By: #### C MP #### [facility] [address] [place] [address] Dr. Shirley Pandya Anion gap [Moles/Vol] 13.0 mmol/L Normal [facility] Comment on above: Performed By: #### C MP #### [facility] [address] [place] [address] Dr. Shirley Pandya AST [Catalytic activity/Vol] 16 U/L Normal 15-37 [facility] Comment on above: Performed By: #### C MP #### [facility] [address] [place] [address] Dr. Shirley Pandya Bilirubin [Mass/Vol] 0.3 mg/dL Normal 0.2-1.0 [facility] Comment on above: Performed By: #### C MP #### [facility] [address] [place] [address] Dr. Shirley Pandya Calcium [Mass/Vol] 8.7 mg/dL Normal 8.5-10.1 [facility] Comment on above: Performed By: #### C MP #### [facility] [address] [place] [address] Dr. Shirley Pandya Chloride [Moles/Vol] 105 mmol/L Normal 98-107 [facility] Comment on above: Performed By: #### C MP #### [facility] [address] [place] [address] Dr. Shirley Pandya CO2 [Moles/Vol] 28.9 mmol/L Normal 21.0-32.0 [facility] Comment on above: Performed By: #### C MP #### [facility] [address] [place] [address] Dr. Shirley Pandya Creatinine [Mass/Vol] 1.16 mg/dL Normal 0.70-1.30 [facility] Comment on above: Performed By: #### C MP #### [facility] [address] [place] [address] Dr. Shirley Pandya EGFR-AF CENTRAL AFRICAN >60 Normal >=60 [facility] Comment on above: Performed By: #### C MP #### [facility] [address] [place] [address] Dr. Shirley Pandya EGFR-NON AF CENTRAL AFRICAN >60 Normal >=60 [facility] Comment on above: Performed By: #### C MP #### [facility] [address] [place] [address] Dr. Shirley Pandya Globulin (S) [Mass/Vol] 3.5 g/dL Normal [facility] Comment on above: Performed By: #### C MP #### [facility] [address] [place] [address] Dr. Shirley Pandya Glucose [Mass/Vol] 102 mg/dL Normal 74-106 [facility] Comment on above: Performed By: #### C MP #### [facility] [address] [place], [place] [address] Dr. Shirley Pandya Potassium [Moles/Vol] 3.9 mmol/L Normal 3.5-5.1 [facility] Comment on above: Performed By: #### C MP #### [facility] [address] [place], [place] [address] Dr. Shirley Pandya Protein [Mass/Vol] 7.1 g/dL Normal 6.4-8.2 [facility] Comment on above: Performed By: #### C MP #### [facility] [address] [place], [place] [address] Dr. Shirley Pandya Sodium [Moles/Vol] 143 mmol/L Normal 136-145 [facility] Comment on above: Performed By: #### C MP #### [facility] [address] [place], [place] [address] Dr. Shirley Pandya Urea nitrogen [Mass/Vol] 11.0 mg/dL Normal 7.0-18.0 [facility] Comment on above: Performed By: #### C MP #### [facility] [address] [place], [place] [address] Dr. Shirley Pandya Urea nitrogen/Creatinine [Mass ratio] 9.5 mg/mg Normal [facility] Comment on above: Performed By: #### C MP #### [facility] [address] [place], [place] [address] Dr. Shirley Pandya XR CHEST 2 Von 11-28-2021 XR CHEST 2 V EXAMINATION: XR CHES T 2 V HISTORY: H/O: respiratory disease ; acute back pain; prior lung surgery COMPARISON: No relevant comparison available. FINDINGS: LUNGS: Right lung is hyperexpanded and clear. Left lung is clear, but there is blunting of the left lateral and posterior costophrenic angles. VASCULATURE: No increased pulmonary vasculature. PLEURA: No pneumothorax or pleural thickening. Left pleural effusion cannot be excluded. CARDIAC: No cardiomegaly or cardiac silhouette abnormality. MEDIASTINUM: No visible mass or adenopathy. BONES: No fracture or visible bone lesion. OTHER: Negative. IMPRESSION: 1. No pulmonary infiltrates. 2. Hyper expanded right lung; exaggerated inspiratory effort versus COPD. 3. Blunting of left costophrenic angles typically associated with small pleural effusion. Patient's history describes prior lung surgery , and this may represent chronic changes from lung surgery. No comparison studies. Electronically authenticated by: DENISE DOMINGUEZ Date: 2021-11-28 09:00 Normal [facility] CBC Without Differentialon 1 06-30-2020 Erythrocyte distribution width (RBC) [Ratio] 13.4 % Normal 12.0-14.8 [facility] Comment on above: Performed By: #### C BCNOOUTREACH, PSA OUTREACH, OUTREACH CMP, OUTREACH LIPID #### [address] Hematocrit (Bld) [Volume fraction] 45.7 % Normal 38.8-50.0 [facility] Comment on above: Performed By: #### C BCNOOUTREACH, PSA OUTREACH, OUTREACH CMP, OUTREACH LIPID #### [address] Hemoglobin (Bld) [Mass/Vol] 16.0 g/dL Normal 13.0-17.0 [facility] Comment on above: Performed By: #### C BCNOOUTREACH, PSA OUTREACH, OUTREACH CMP, OUTREACH LIPID #### [address] MCH (RBC) [Entitic mass] 30.6 pg Normal 27.5-35.2 [facility] Comment on above: Performed By: #### C BCNOOUTREACH, PSA OUTREACH, OUTREACH CMP, OUTREACH LIPID #### [address] MCV (RBC) [Entitic vol] 87.6 fL Normal 83.5-101 [facility] Comment on above: Performed By: #### C BCNOOUTREACH, PSA OUTREACH, OUTREACH CMP, OUTREACH LIPID #### [address] Mean Corpuscular HGB Conc 35.0 g/dL Normal 32.5-35.6 [facility] Comment on above: Performed By: #### C BCNOOUTREACH, PSA OUTREACH, OUTREACH CMP, OUTREACH LIPID #### [address] Platelet mean volume (Bld) [Entitic vol] 7.3 fL Normal 6.6-10.1 [facility] Comment on above: Result Comment: PERF ORMED BY: [place] [address] PATHOLOGIST [employer] SUPERINTENDENT EMANUEL NELSON M.D. Performed By: #### C BCNOOUTREACH, PSA OUTREACH, OUTREACH CMP, OUTREACH LIPID #### [address] Platelets (Bld) [#/Vol] 271 10*3/uL Normal 150-450 [facility] Comment on above: Performed By: #### C BCNOOUTREACH, PSA OUTREACH, OUTREACH CMP, OUTREACH LIPID #### [address] RBC (Bld) [#/Vol] 5.22 10*6/uL Normal 3.90-5.60 [facility] Comment on above: Performed By: #### C BCNOOUTREACH, PSA OUTREACH, OUTREACH CMP, OUTREACH LIPID #### [address] WBC (Bld) [#/Vol] 7.0 10*3/uL Normal 4.1-10.5 [facility] Comment on above: Performed By: #### C BCNOOUTREACH, PSA OUTREACH, OUTREACH CMP, OUTREACH LIPID #### [address] CMP Outreachon 04-29-2021 Albumin [Mass/Vol] 3.7 g/dL Normal 3.2-5.5 [facility] Comment on above: Performed By: #### C BCNOOUTREACH, PSA OUTREACH, OUTREACH CMP, OUTREACH LIPID #### [address] ALP [Catalytic activity/Vol] 87 U/L Normal 32-92 [facility] Comment on above: Performed By: #### C BCNOOUTREACH, PSA OUTREACH, OUTREACH CMP, OUTREACH LIPID #### [address] [place] [address] [place] ALT [Catalytic activity/Vol] 18 U/L Normal 10-60 [facility] Comment on above: Performed By: #### C BCNOOUTREACH, PSA OUTREACH, OUTREACH CMP, OUTREACH LIPID #### [facility] [address] [place] [address] [place] AST [Catalytic activity/Vol] 19 U/L Normal 10-42 [facility] Comment on above: Performed By: #### C BCNOOUTREACH, PSA OUTREACH, OUTREACH CMP, OUTREACH LIPID #### [facility] [address] [place] [address] [place] Bilirubin [Mass/Vol] 0.3 mg/dL Normal 0.3-1.2 [facility] Comment on above: Performed By: #### C BCNOOUTREACH, PSA OUTREACH, OUTREACH CMP, OUTREACH LIPID #### [facility] [address] [place] [address] [place] Calcium [Mass/Vol] 9.1 mg/dL Normal 8.2-10.2 [facility] Comment on above: Performed By: #### C BCNOOUTREACH, PSA OUTREACH, OUTREACH CMP, OUTREACH LIPID #### [facility] [address] [place] [address] [place] Chloride [Moles/Vol] 106 mmol/L Normal 95-114 [facility] Comment on above: Performed By: #### C BCNOOUTREACH, PSA OUTREACH, OUTREACH CMP, OUTREACH LIPID #### [facility] [address] [place] [address] [place] CO2 [Moles/Vol] 22.9 mmol/L Normal 22.0-30.0 [facility] Comment on above: Performed By: #### C BCNOOUTREACH, PSA OUTREACH, OUTREACH CMP, OUTREACH LIPID #### [facility] [address] [place] [address] [place] Creatinine [Mass/Vol] 1.01 mg/dL Normal 0.64-1.27 [facility] Comment on above: Performed By: #### C BCNOOUTREACH, PSA OUTREACH, OUTREACH CMP, OUTREACH LIPID #### [facility] [address] [place] [address] [place] Estimated GFR ( Padmini > 60 Normal [facility] Comment on above: Result Comment: GFR estimated reference range: According to KDOQI guidelines, <60 ml/min/1.73m2 is sufficient to diagnose a patient with chronic kidney disease. Performed By: #### C BCNOOUTREACH, PSA OUTREACH, OUTREACH CMP, OUTREACH LIPID #### [facility] [address] [place] [id number] [place] Estimated GFR (Non- Am > 60 Normal [facility] Comment on above: Performed By: #### C BCNOOUTREACH, PSA OUTREACH, OUTREACH CMP, OUTREACH LIPID #### [facility] [address] [place] [address] [place] Glucose [Mass/Vol] 99 mg/dL Normal 70-100 [facility] Comment on above: Result Comment: [place] Glucose Reference Range is dependent on time and content of last meal. Glucose of more than 200 mg/dL in a nonstressed, ambulatory subject supports the diagnosis of Diabetes Mellitus. ADA recommended reference range Performed By: #### C BCNOOUTREACH, PSA OUTREACH, OUTREACH CMP, OUTREACH LIPID #### [facility] [address] [place] [phone] [place] Potassium [Moles/Vol] 4.1 mmol/L Normal 3.5-5.1 [facility] Comment on above: Performed By: #### C BCNOOUTREACH, PSA OUTREACH, OUTREACH CMP, OUTREACH LIPID #### [facility] [address] [place] [phone] [place] Protein [Mass/Vol] 6.7 g/dL Normal 6.1-7.9 [facility] Comment on above: Performed By: #### C BCNOOUTREACH, PSA OUTREACH, OUTREACH CMP, OUTREACH LIPID #### [facility] [address] [place] [phone] [place] Sodium [Moles/Vol] 139 mmol/L Normal 136-146 [facility] Comment on above: Performed By: #### C BCNOOUTREACH, PSA OUTREACH, OUTREACH CMP, OUTREACH LIPID #### [facility] [address] [place] [phone] [place] Urea nitrogen [Mass/Vol] 11 mg/dL Normal 9-23 [facility] Comment on above: Performed By: #### C BCNOOUTREACH, PSA OUTREACH, OUTREACH CMP, OUTREACH LIPID #### [facility] [address] [place] [phone] [facility] Lipid Profile Outreachon Cholesterol [Mass/Vol] 173 mg/dL Normal 140-200 [facility] Comment on above: Result Comment: Chol less than 200 mg/dl low risk Chol 201-239 mg/dl borderline risk Chol 240 mg/dl and greater high risk Performed By: #### C BCNOOUTREACH, PSA OUTREACH, OUTREACH CMP, OUTREACH LIPID #### [facility] [address] Cholesterol in HDL [Mass/Vol] 34 mg/dL Normal 29-71 [facility] Comment on above: Result Comment: HDL CHOL ATP-III CLASSIFICATION Cardiovascular Risk HDL > or equal to 60 mg/dL LOW HDL < 40 mg/dL HIGH Performed By: #### C BCNOOUTREACH, PSA OUTREACH, OUTREACH CMP, OUTREACH LIPID #### [facility] [address] Cholesterol.total/C holesterol in HDL [Mass ratio] 5.1 {ratio} Normal <5.0 [facility] Comment on above: Result Comment: PERF ORMED BY: [place] [address] PATHOLOGIST [employer]ATION SUPERINTENDENT EMANUEL NELSON M.D. Performed By: #### C BCNOOUTREACH, PSA OUTREACH, OUTREACH CMP, OUTREACH LIPID #### [facility] [address] LDL Cholesterol,Calcula ximena 124 mg/dL High 0-100 [facility] Comment on above: Result Comment: LDL ATP III CLASSIFICATION LDL less than 100 mg/dL Optimal LDL 100-129 mg/dL Near or above optimal LDL 130-159 mg/dL Borderline high LDL 160-189 mg/dL High LDL greater than 189 mg/dL Very high Performed By: #### C BCNOOUTREACH, PSA OUTREACH, OUTREACH CMP, OUTREACH LIPID #### [facility] [address] [place] [address] [place] Triglyceride w/Reflex 77 mg/dL Normal 35-149 [facility] Comment on above: Result Comment: TRIG ATP III CLASSIFICATION TRIG less than 150 mg/dL Normal TRIG 150-199 mg/dL Borderline high TRIG 200-500 mg/dL High TRIG greater than 500 mg/dL Very high Standard traceable to the Center for Disease Conrtrol and Prevention (CDC) test method. Performed By: #### C BCNOOUTREACH, PSA OUTREACH, OUTREACH CMP, OUTREACH LIPID #### [facility] [address] VLDL CHOLESTEROL 15 mg/dL Normal [facility] Comment on above: Performed By: #### C BCNOOUTREACH, PSA OUTREACH, OUTREACH CMP, OUTREACH LIPID #### [facility] [address] PSA Total Community Outreach on 04-29-2021 PSA Total Community Outreach 0.350 ng/mL Normal 0.000-4.000 [facility] Comment on above: Result Comment: PERF ORMED BY: [facility] [address] [place] [address] PATHOLOGIST STATION SUPERINTENDENT EMANUEL NELSON M.D. Performed By: #### C BCNOOUTREACH, PSA OUTREACH, OUTREACH CMP, OUTREACH LIPID #### [facility] [address] Vital Signs Date Time Vital Sign Value Performing Clinician Facility 12-27-2023 11:20-0400 Diastolic blood pressure 54 mm[Hg] Cisneros Sarmini [facility] 12-27-2023 11:20-0400 Heart rate 52 /min Cisneros Sarmini [facility] 12-27-2023 11:20-0400 Mean blood pressure 73 mm[Hg] Cisneros Sarmini [facility] 12-27-2023 11:20-0400 Respiratory rate 20 /min Cisneros Sarmini [facility] 12-27-2023 11:20-0400 SaO2% (BldA) [Mass fraction] 97 % Cisneros Sarmini [facility] 12-27-2023 11:20-0400 Systolic blood pressure 110 mm[Hg] Cisneros Sarmini [facility] 12-27-2023 11:10-0400 Diastolic blood pressure 47 mm[Hg] Cisneros Sarmini [facility] 12-27-2023 11:10-0400 Heart rate 54 /min Cisneros Sarmini [facility] 12-27-2023 11:10-0400 Mean blood pressure 68 mm[Hg] Cisneros Sarmini [facility] 12-27-2023 11:10-0400 Respiratory rate 14 /min Cisneros Sarmini [facility] 12-27-2023 11:10-0400 SaO2% (BldA) [Mass fraction] 96 % Cisneros Sar[facility] 12-27-2023 11:10-0400 Systolic blood pressure 110 mm[Hg] Cisneros Sarmini [facility] 12-27-2023 11:05-0400 Diastolic blood pressure 56 mm[Hg] Cisneros Sarmini [facility] 12-27-2023 11:05-0400 Heart rate 56 /min Cisneros Sarmini [facility] 12-27-2023 11:05-0400 Mean blood pressure 76 mm[Hg] Cisneros Sarmini [facility] 12-27-2023 11:05-0400 Respiratory rate 19 /min Cisneros Sarmini [facility] 12-27-2023 11:05-0400 SaO2% (BldA) [Mass fraction] 95 % Cisneros Sarmini [facility] 12-27-2023 11:05-0400 Systolic blood pressure 116 mm[Hg] Cisneros Sarmini [facility] 12-27-2023 10:55-0400 Body temperature 98.24 [degF] Cisneros Sarmini [facility] 12-27-2023 09:54-0400 Blood Pressure Location Cisneros Rosemarymini [facility] 12-27-2023 09:54-0400 Body temperature 96.8 [degF] Cisneros Rosemary[facility] 09-10-2023 11:57-0400 Blood Pressure Location Lulusrikanth PortilloRicardo [facility] 09-10-2023 11:57-0400 Body temperature 97.7 [degF] Lulu Ricardo [facility] 09-10-2023 11:57-0400 Diastolic blood pressure 66 mm[Hg] Lulu Ricardo [facility] 09-10-2023 11:57-0400 Heart rate 62 /min Lulu Ricardo [facility] 09-10-2023 11:57-0400 Systolic blood pressure 128 mm[Hg] Lulu Ricardo [facility] 06-28-2023 11:28-0500 Body height 182.9 cm Aidan CHAVEZ Work Phone: [facility] 02-02-2024 11:28-0500 Body mass index (BMI) [Ratio] 27.8 kg/m2 Aidan Heredia DPM [facility] Work Phone: [facility] 06-28-2023 11:28-0500 Body weight 92.99 kg Aidan Heredia DPM [facility]AC[facility]AS Work Phone: [facility] 06-28-2023 11:28-0500 Diastolic blood pressure 75 mm[Hg] Aidan Heredia DPM [facility]AC[facility] Work Phone: [facility] 06-28-2023 11:28-0500 Heart rate 75 /min Aidan Heredia DPM [facility] Work Phone: [facility] 06-28-2023 11:28-0500 Systolic blood pressure 127 mm[Hg] Aidan Heredia DPM [facility]AC[facility]AS Work Phone: [facility] 05-28-2023 14:00-0500 Body height 182.88 cm Pedro Luis Ball Other [facility] Other 05-28-2023 14:00-0500 Body mass index (BMI) [Ratio] 28.78 kg/m2 Pedro Luis Ball Other [facility] Other 05-28-2023 14:00-0500 Body weight 96.25 kg Pedro Luis Ball Other [facility] Other 05-28-2023 14:00-0500 Diastolic blood pressure 84 mm[Hg] Pedro Luis Ball Other [facility] Other 05-28-2023 14:00-0500 Respiratory rate 12 /min Pedro Luis Ball Other [facility] Other 05-28-2023 14:00-0500 Systolic blood pressure 146 mm[Hg] Pedro Luis Ball Other [facility] Other Encounters Encounter Date Encounter Type Care Provider Facility Start: 12-27-2023 End: 12-27-2023 ambulatory Amelia Adame Facility:[facility] Start: 12-27-2023 End: 12-27-2023 Patient encounter procedure Amelia Adame [facility] Start: 09-10-2023 End: 09-10-2023 ambulatory Lulu Silva Facility:[facility] Start: 09-10-2023 End: 09-10-2023 Patient encounter procedure Lulu Silva [facility] Start: 08-26-2023 [facility]ulatory [facility] Start: 07-12-2023 End: 07-12-2023 ambulatory AIDAN D DOLCE Not Available Start: 06-28-2023 Bamboo flowsheet Aidan D Dolce DPM FACFAS Work Phone: [facility] Start: 06-28-2023 Bamboo flowsheet Aidan D Dolce DPM [facility]AC[facility]AS Work Phone: [facility] Start: 06-28-2023 End: 06-28-2023 ambulatory AIDAN D DOLCE Not Available Start: 06-28-2023 End: 06-28-2023 Office outpatient visit 15 minutes Aidan D Dolce DPM [facility]AC[facility] Work Phone: [facility] Comment on above: Abscess, toe, left ( Primary Dx); Onychocryptosis; Pain in left toe(s) Start: 06-24-2023 End: 06-24-2023 ambulatory Pedro Luis Interiano Other [facility] Other Start: 06-24-2023 Telephone encounter Pedro Luis [facility]cer [facility] Start: 06-14-2023 End: 06-14-2023 ambulatory AIDAN D DOLCE Not Available Start: 06-07-2023 End: 06-07-2023 ambulatory Pedro Luis Interiano Other [facility] Other Start: 06-07-2023 Telephone encounter Pedro Luis Interiano [facility] Start: 05-28-2023 End: 05-28-2023 ambulatory Pedro Luis [facility] Other [facility] Other Start: 05-28-2023 Encounter for genera l adult medical examination without abnormal findings Pedro Luis Interiano [facility] Start: 05-28-2023 Periodic preventive med est patient 40-64yrs Pedro Luis Interiano [facility] Start: 05-05-2023 End: 05-05-2023 ambulatory Pedro Luis Interiano Other [facility] Other Start: 05-05-2023 Telephone encounter Pedro Luis CHAPPELL [facility] Start: 03-13-2023 End: 03-13-2023 ambulatory Pedro Luis Interiano Other [facility] Other Start: 03-13-2023 Telephone encounter Pedro Luis Interiano [facility] Start: 12-31-2022 End: 12-31-2022 ambulatory Pedro Luis Interiano Other [facility] Other Start: 12-31-2022 Telephone encounter Pedro Luis Interiano [facility] Start: 10-01-2022 End: 10-01-2022 ambulatory Pedro Luis [facility] Other [facility] Other Start: 10-01-2022 Office outpatient vi sit 15 minutes Pedro Luis Interiano [facility] Start: 12-01-2021 Encounter for genera l adult medical examination without abnormal findings DR PEDRO LUIS INTERIANO [facility] Start: 11-28-2021 End: 11-29-[address] PEDRO LUIS INTERIANO Facility:[facility] Start: 11-28-2021 End: 11-29-2021 Encounter for general adult medical examination without abnormal findings DR PEDRO LUIS INTERIANO Facility:[facility] Start: 11-15-2021 Adult health examination Pedro Luis Interiano Other [facility] Other Procedures Date Procedure Procedure Detail Performing Clinician Start: 12-27-2023 Colonoscopy Amelia Adame Start: 12-27-2023 Esophagogastroduodenoscopy Amelia sampson Start: 11-13-2018 End: 12-05-2020 Screening for malignant neoplasm of colon Pedro Luis Interiano Other Colonoscopy Lulu Silva Comment on above: Per patient over 10 years ago. Plan of Treatment Date Care Activity Detail Author Start: 07-12-2023 End: 07-12-2023 Patient encounter procedure 07/12/2023 11:10 AM EST Office Visit [facility] [address] [place] [id number] Aidan Heredia, DPM [facility] [address] [place] [address] [facility] Start: 06-28-2023 End: 06-28-2023 Patient encounter procedure 06/28/2023 11:30 AM EST Office Visit [facility] [address] [place] [phone] Aidan Heredia, DPM [facility] [address] [place] [address] Arrived [facility] Comment on above: Arrived Start: 1970 Screening for malign ant neoplasm of colon [facility] Immunizations Immunization Date Immunization Notes Care Provider Fa cili 03-11-2020 influenza virus vaccine, split virus (incl. purified surface antigen) Pedro Luis Interiano Other [facility] Other 04-08-2019 influenza virus vaccine, split virus (incl. purified surface antigen) Pedro Luis Interiano Other [facility] Other 04-08-2019 pneumococcal polysaccharide vaccine, 23 valent Pedro Luis Interiano Other [facility] Other Payers Date Payer Category Payer [facility] [id number] 2023 Unknown [employer] [id number] 2023-Present [phone] [address] [place] [address] [id number] 2023 Private Health Insurance [id number] 1968 Unknown [id number] 1968 Unknown [id number] 1968 Unknown [id number] 1968 Unknown [id number] 1968 Unknown [id number] 1968 Unknown [id number] 1968 Unknown [id number] 1959 Unknown [id number] Unknown [id number] Social History Date Type Detail Facility Start: 06-14-2023 End: 06-28-2023 Sex Assigned [facility] Start: 06[facility]14-[facility]23 [facility] History of tobacco use Cigarette Smoker [facility] Start: 06-14-2023 Tobacco use and exposure Smokeless tobacco non-user [facility] Start: 06-14-2023 End: 06-28-2023 Alcohol intake Defer [facility] Start: 06-14-2023 End: 06-28-2023 History of Social function [facility] Start: 1970 Sex Assigned At Not on file [facility] Start: 09-10-2023 Tobacco smoking status Heavy t obacco smoker (finding) [facility] Tobacco smoking status Never [facility] Functional Status Date Assessment Result Facility 12-27-2023 Functional Status N/A [facility] 09-10-2023 Functional Status N/A [facility] Clinical Notes 10-01-2022 to 01-05-2024 Aidan Heredia DPM [facility]AC[facility]AS - 06/28/2023 11:30 AM EST Note Date & Type Note Facility 01-05-2024 Note Progress Note-Physic sean Patient: KATERYNA HERRING Age: 53 years Sex: Male : 1970 Associated Diagnoses: None Author: MD Eddie, Andres Pathak Postoperative Information Postoperative disposition: Postoperative disposition: To PACU. Optimetrix number: Optimetrix number [id number]. Anesthetic utilized: General. Health Status Allergies: Allergic Reactions (Selected) No Known Medication Allergies Physical Examination VS/Measurements Pain Assessment: Controlled. General: Awake, Alert, Appropriate. Respiratory: Adequate air exchange. Cardiovascular: Stable, Normal peripheral perfusion. Neurological: Normal sensory function, Normal motor function. Assessment Anesthetic outcome No anesthetic complications noted. Adequate pain relief. able to void without difficulty, able to ambulate with assist, tolerating PO intake, no N/V. Review / Management Condition: Stable. Plan Transfer/Discharge: Transfer/Discharge Discharge when meets criteria ( To home ). [facility] Comment on above: Result Comment: Elec tronically Signed By: MD Morgan Ahmad F\.br\Date and Time Signed: 01/05/24 17:08 EDT 01-05-2024 Note Progress Note-Physic sean Patient: KATERYNA HERRING Age: 53 years Sex: Male : 1970 Associated Diagnoses: None Author: MD Morgan Ahmad F Preoperative Information Time patient last ate or drank:=== (npo 8 hours) Anesthesia history: Patient history: No prior anesthesia problems. Re-evaluation prior to induction: Completed, Initial evaluation reviewed. Review of Systems Respiratory: No shortness of breath. Cardiovascular: No chest pain. Hematology/Lymphatics: No bruising tendency, No bleeding tendency. Health Status Allergies: Allergic Reactions (All) No Known Medication Allergies Current medications: (Selected) Prescriptions Prescribed omeprazole 40 mg Cap-DR: 40 mg = 1 cap(s), Oral, Daily, # 90 cap(s), Refills(s) 3, Pharmacy: [facility]/pharmacy #[id number], 182, cm, 12/27/23 9:54:00 EDT, Height/Length Dosing, 96.1, kg, 12/27/23 9:54:00 EDT, Weight Dosing Documented Medications Documented Pantoprazole [address] Tab: 40 mg = 1 tab(s), Oral, Daily, Refills(s) 0, Control of stomach acid Toprol XL 50 mg Tab-ER: 50 mg = 1 tab(s), Oral, Daily, 0 Refill(s), Refills(s) 0 albuterol HFA 90 mcg/inh MDI: Refill(s) 0, 0 Refill(s), Shortness of breath or wheezing budesonide-formoterol 80 mcg-4.5 mcg/inh Inh Aer w/adapter: 2 puff(s), Inhalation, Refill(s) 0, 0 Refill(s), Shortness of breath or wheezing paroxetine 40 mg Tab: 40 mg = 1 tab(s), Oral, Daily, Refills(s) 0 Problem list: All Problems Screen for colon cancer / SNOMED CT 557308068 / Confirmed History of colon polyps / SNOMED CT 9210378675 / Confirmed Acid reflux / SNOMED CT [id number] / Confirmed BRBPR (bright red blood per rectum) / SNOMED CT [id number] / Confirmed Histories Past Medical History: No active or resolved past medical history items have been selected or recorded. Family History: Heart murmur Mother Procedure history: Esophagogastroduodenoscopy ([id number]) on 12/27/2023 at 53 Years. Colonoscopy ([id number]) on 12/27/2023 at 53 Years. Colonoscopy ([id number]). Comments: 09/10/2023 11:58 EDT - Radha Teixeira Per patient over 10 years ago. Social History Social & Psychosocial Habits Tobacco 09/10/2023 Tobacco Use: 10 or more cigarettes (1/ Smokeless tobacco use: Never Type: Cigarettes . Physical Examination Please see preop flow sheet Airway: Mallampati classification: II (soft palate, fauces, uvula visible). Respiratory: Lungs are clear to auscultation. Cardiovascular: Normal rate, Regular rhythm. Neurologic: Alert. Review / Management Results review Interpretation of Outside Results Chest x-ray results Radiology results ECG interpretation Condition Plan [place] [employer]esthesiologists (ASA) physical status classification: Class II. Anesthetic Preoperative Plan Anesthesia: General. . Anesthetic plan, risks, benefits, and alternatives discussed with the patient and/or family. Risks discussed: nausea, vomiting, headache, sore throat, dental injury, serious complications. Patient verbalized understanding. Communication: face to face with patient 5 minutes. [facility] Comment on above: Result Comment: Elec tronically Signed By: MD Eddie, Andres Pathak\.jairo\Date and Time Signed: 01/05/24 17:06 EDT 12-27-2023 Hospital Discharge instructions Patient Education 12/27/2023 11:03:51 Gastritis, Adult, Ofzb-bd-Pqeh Gastritis, Adult Gastritis is irritation and swelling (inflammation) of the stomach. There are two kinds of gastritis: Acute gastritis. This kind develops quickly. Chronic gastritis. This kind is much more common. It develops slowly and lasts for a long time. It is important to get help for this condition. If you do not get help, your stomach can bleed, and you can get sores (ulcers) in your stomach. What are the causes? This condition may be caused by: Germs that get to your stomach and cause an infection. Drinking too much alcohol. Medicines you are taking. Having too much acid in the stomach. Having a disease of the stomach. Other causes may include: An allergic reaction. Some cancer treatments (radiation). Smoking cigarettes or using products that contain nicotine or tobacco. In some cases, the cause of this condition is not known. What increases the risk? Having a disease of the intestines. Having Crohn's disease. Using aspirin or ibuprofen and other NSAIDs to treat other conditions. Stress. What are the signs or symptoms? Pain in your stomach. A burning feeling in your stomach. Feeling like you may vomit (nauseous). Vomiting or vomiting blood. Feeling too full after you eat. Weight loss. Bad breath. Blood in your poop (stool). In some cases, there are no symptoms. How is this treated? This condition is treated with medicines. The medicines that are used depend on what caused the condition. You may be given: Antibiotic medicine, if your condition was caused by an infection from germs. H2 blockers and similar medicines, if your condition was caused by too much acid in the stomach. Treatment may also include stopping the use of certain medicines, such as aspirin or ibuprofen. Follow these instructions at home: Medicines Take agjr-pyq-qgetnct and prescription medicines only as told by your doctor. If you were prescribed an antibiotic medicine, take it as told by your doctor. Do not stop taking it even if you start to feel better. Alcohol use Do not drink alcohol if: ?Your doctor tells you not to drink. ?You are , may be , or are planning to become . If you drink alcohol: ?Limit your use to: ?0 1 drink a day for women. ?0 2 drinks a day for men. ?Know how much alcohol is in your drink. In the [place] one drink equals one 12 oz bottle of beer (355 mL), one 5 oz glass of wine (148 mL), or one 1 oz glass of hard liquor (44 mL). General instructions Eat small meals often, instead of large meals. Avoid foods and drinks that make you feel worse. Drink enough fluid to keep your pee (urine) pale yellow. Talk with your doctor about ways to manage stress. You can exercise or do deep breathing, meditation, or yoga. Do not smoke or use any products that contain nicotine or tobacco. If you need help quitting, ask your doctor. Keep all follow-up visits. Contact a doctor if: Your symptoms get worse. Your stomach pain gets worse. Your symptoms go away and then come back. You have a fever. Get help right away if: You vomit blood or something that looks like coffee grounds. You have black or dark red poop. You throw up any time you try to drink fluids. These symptoms may be an emergency. Get help right away. Call your local emergency services (911 in the [place] Do not wait to see if the symptoms will go away. Do not drive yourself to the hospital. Summary Gastritis is irritation and swelling (inflammation) of the stomach. You must get help for this condition. If you do not get help, your stomach can bleed, and you can get sores (ulcers) in your stomach. You can be treated with medicines for germs or medicines to block too much acid in your stomach. This information is not intended to replace advice given to you by your health care provider. Make sure you discuss any questions you have with your health care provider. Document Revised: 09/16/2021 Document Reviewed: 09/16/2021 [employer] Patient Education 2022 [employer]. 12/27/2023 11:03:42 Endoscopy, Care After Procedure [facility] ([facility]) Endoscopy Care After Procedure Please read the instructions outlined below and refer to this sheet in the next few weeks. These discharge instructions provide you with general information on caring for yourself after you leave the hospital. Your doctor may also give you specific instructions. While your treatment has been planned according to the most current medical practices available, unavoidable complications occasionally occur. If you have any problems or questions after discharge, please call your doctor. ACTIVITY You may resume your regular activity but move at a slower pace for the next 24 hours. Take frequent rest periods for the next 24 hours. Walking will help expel (get rid of) the air and reduce the bloated feeling in your abdomen. No driving for 24 hours (because of the anesthesia (medicine) used during the test). You may shower. Do not sign any important legal documents or operate any machinery for 24 hours (because of the anesthesia used during the test). NUTRITION Drink plenty of fluids. You may resume your normal diet. Begin with a light meal and progress to your normal diet. Avoid alcoholic beverages for 24 hours or as instructed by your caregiver. MEDICATIONS You may resume your normal medications unless your caregiver tells you otherwise. WHAT YOU CAN EXPECT TODAY You may experience abdominal discomfort such as a feeling of fullness or gas pains. FOLLOW-UP Your doctor will discuss the results of your test with you. SEEK IMMEDIATE MEDICAL ATTENTION IF ANY OF THE FOLLOWING OCCUR: Excessive nausea (feeling sick to your stomach) and/or vomiting. Severe abdominal pain and distention (swelling). Trouble swallowing. Temperature over 100 F (37.8 C). Rectal bleeding or vomiting of blood. Document Released: 12/25/2004 Document Re-Released: 11/04/2006 [employer] Patient Information 2010 [employer]. 12/27/2023 11:03:40 Hemorrhoids, Axkf-xn-Blfg Hemorrhoids Hemorrhoids are swollen veins that may develop: In the butt (rectum). These are called internal hemorrhoids. Around the opening of the butt (anus). These are called external hemorrhoids. Hemorrhoids can cause pain, itching, or bleeding. Most of the time, they do not cause serious problems. They usually get better with diet changes, lifestyle changes, and other home treatments. What are the causes? This condition may be caused by: Having trouble pooping (constipation). Pushing hard (straining) to poop. Watery poop (diarrhea). . Being very overweight (obese). Sitting for long periods of time. Heavy lifting or other activity that causes you to strain. Anal sex. Riding a bike for a long period of time. What are the signs or symptoms? Symptoms of this condition include: Pain. Itching or soreness in the butt. Bleeding from the butt. Leaking poop. Swelling in the area. One or more lumps around the opening of your butt. How is this diagnosed? A doctor can often diagnose this condition by looking at the affected area. The doctor may also: Do an exam that involves feeling the area with a gloved hand (digital rectal exam). Examine the area inside your butt using a small tube (anoscope). Order blood tests. This may be done if you have lost a lot of blood. Have you get a test that involves looking inside the colon using a flexible tube with a camera on the end (sigmoidoscopy or colonoscopy). How is this treated? This condition can usually be treated at home. Your doctor may tell you to change what you eat, make lifestyle changes, or try home treatments. If these do not help, procedures can be done to remove the hemorrhoids or make them smaller. These may involve: Placing rubber bands at the base of the hemorrhoids to cut off their blood supply. Injecting medicine into the hemorrhoids to shrink them. Shining a type of light energy onto the hemorrhoids to cause them to fall off. Doing surgery to remove the hemorrhoids or cut off their blood supply. Follow these instructions at home: Eating and drinking Eat foods that have a lot of fiber in them. These include whole grains, beans, nuts, fruits, and vegetables. Ask your doctor about taking products that have added fiber (fibersupplements). Reduce the amount of fat in your diet. You can do this by: ?Eating low-fat dairy products. ?Eating less red meat. ?Avoiding processed foods. Drink enough fluid to keep your pee (urine) pale yellow. Managing pain and swelling Take a warm-water bath (sitz bath) for 20 minutes to ease pain. Do this 3 4 times a day. You may do this in a bathtub or using a portable sitz bath that fits over the toilet. If told, put ice on the painful area. It may be helpful to use ice between your warm baths. ?Put ice in a plastic bag. ?Place a towel between your skin and the bag. ?Leave the ice on for 20 minutes, 2 3 times a day. General instructions Take qpzz-gph-vfhqzhr and prescription medicines only as told by your doctor. ?Medicated creams and medicines may be used as told. Exercise often. Ask your doctor how much and what kind of exercise is best for you. Go to the bathroom when you have the urge to poop. Do not wait. Avoid pushing too hard when you poop. Keep your butt dry and clean. Use wet toilet paper or moist towelettes after pooping. Do not sit on the toilet for a long time. Keep all follow-up visits as told by your doctor. This is important. Contact a doctor if you: Have pain and swelling that do not get better with treatment or medicine. Have trouble pooping. Cannot poop. Have pain or swelling outside the area of the hemorrhoids. Get help right away if you have: Bleeding that will not stop. Summary Hemorrhoids are swollen veins in the butt or around the opening of the butt. They can cause pain, itching, or bleeding. Eat foods that have a lot of fiber in them. These include whole grains, beans, nuts, fruits, and vegetables. Take a warm-water bath (sitz bath) for 20 minutes to ease pain. Do this 3 4 times a day. This information is not intended to replace advice given to you by your health care provider. Make sure you discuss any questions you have with your health care provider. Document Revised: 11/22/2021 Document Reviewed: 11/22/2021 [employer] Patient Education 2022 [employer]. 12/27/2023 11:03:37 Colon Polyps Colon Polyps Colon polyps are tissue growths inside the colon, which is part of the large intestine. They are one of the types of polyps that can grow in the body. A polyp may be a round bump or a mushroom-shaped growth. You could have one polyp or more than one. Most colon polyps are noncancerous (benign). However, some colon polyps can become cancerous over time. Finding and removing the polyps early can help prevent this. What are the causes? The exact cause of colon polyps is not known. What increases the risk? The following factors may make you more likely to develop this condition: Having a family history of colorectal cancer or colon polyps. Being older than 45 years of age. Being younger than 45 years of age and having a significant family history of colorectal cancer or colon polyps or a genetic condition that puts you at higher risk of getting colon polyps. Having inflammatory bowel disease, such as ulcerative colitis or Crohn's disease. Having certain conditions passed from parent to child (hereditary conditions), such as: ?Familial adenomatous polyposis (FAP). ?Choudhury syndrome. ?Turcot syndrome. ?Peutz Jeghers syndrome. ?MUTYH-associated polyposis (MAP). Being overweight. Certain lifestyle factors. These include smoking cigarettes, drinking too much alcohol, not getting enough exercise, and eating a diet that is high in fat and red meat and low in fiber. Having had childhood cancer that was treated with radiation of the abdomen. What are the signs or symptoms? Many times, there are no symptoms. If you have symptoms, they may include: Blood coming from the rectum during a bowel movement. Blood in the stool (feces). The blood may be bright red or very dark in color. Pain in the abdomen. A change in bowel habits, such as constipation or diarrhea. How is this diagnosed? This condition is diagnosed with a colonoscopy. This is a procedure in which a lighted, flexible scope is inserted into the opening between the buttocks (anus) and then passed into the colon to examine the area. Polyps are sometimes found when a colonoscopy is done as part of routine cancer screening tests. How is this treated? This condition is treated by removing any polyps that are found. Most polyps can be removed during a colonoscopy. Those polyps will then be tested for cancer. Additional treatment may be needed depending on the results of testing. Follow these instructions at home: Eating and drinking Eat foods that are high in fiber, such as fruits, vegetables, and whole grains. Eat foods that are high in calcium and vitamin D, such as milk, cheese, yogurt, eggs, liver, fish, and broccoli. Limit foods that are high in fat, such as fried foods and desserts. Limit the amount of red meat, precooked or cured meat, or other processed meat that you eat, such as hot dogs, sausages, mitchell, or meat loaves. Limit sugary drinks. Lifestyle Maintain a healthy weight, or lose weight if recommended by your health care provider. Exercise every day or as told by your health care provider. Do not use any products that contain nicotine or tobacco, such as cigarettes, e-cigarettes, and chewing tobacco. If you need help quitting, ask your health care provider. Do not drink alcohol if: ?Your health care provider tells you not to drink. ?You are , may be , or are planning to become . If you drink alcohol: ?Limit how much you use to: ?0 1 drink a day for women. ?0 2 drinks a day for men. ?Know how much alcohol is in your drink. In the [place] one drink equals one 12 oz bottle of beer (355 mL), one 5 oz glass of wine (148 mL), or one 1 oz glass of hard liquor (44 mL). General instructions Take vuqh-vsx-vzunope and prescription medicines only as told by your health care provider. Keep all follow-up visits. This is important. This includes having regularly scheduled colonoscopies. Talk to your health care provider about when you need a colonoscopy. Contact a health care provider if: You have new or worsening bleeding during a bowel movement. You have new or increased blood in your stool. You have a change in bowel habits. You lose weight for no known reason. Summary Colon polyps are tissue growths inside the colon, which is part of the large intestine. They are one type of polyp that can grow in the body. Most colon polyps are noncancerous (benign), but some can become cancerous over time. This condition is diagnosed with a colonoscopy. This condition is treated by removing any polyps that are found. Most polyps can be removed during a colonoscopy. This information is not intended to replace advice given to you by your health care provider. Make sure you discuss any questions you have with your health care provider. Document Revised: 08/31/2020 Document Reviewed: 08/31/2020 [employer] Patient Education 2022 [employer]. 12/27/2023 11:03:36 Colonoscopy, Care After Surgery [facility] ([facility]) Colonoscopy Care After Surgery Please read the instructions outlined below and refer to this sheet in the next few weeks. These discharge instructions provide you with general information on caring for yourself after you leave the hospital. Your doctor may also give you specific instructions. While your treatment has been planned according to the most current medical practices available, unavoidable complications occasionally occur. If you have any problems or questions after discharge, please call your doctor. ACTIVITY You may resume your regular activity, but move at a slower pace for the next 24 hours. Take frequent rest periods for the next 24 hours. Walking will help get rid of the air and reduce the bloated feeling in your abdomen (belly). No driving for 24 hours (because of the anesthesia (medicine) used during the test). You may shower. Do not sign any important legal documents or operate any machinery for 24 hours (because of the anesthesia used during the test). NUTRITION Drink plenty of fluids. You may resume your normal diet as instructed by your doctor. Begin with a light meal and progress to your normal diet. Heavy or fried foods are harder to digest and may make you feel nauseated (sick to your stomach). Avoid alcoholic beverages for 24 hours or as instructed. MEDICATIONS You may resume your normal medications unless your doctor tells you otherwise. WHAT YOU CAN EXPECT TODAY Some feelings of bloating in the abdomen. Passage of more gas than usual. Spotting of blood in your stool or on the toilet paper. FOLLOW-UP Your doctor will discuss the results of your test with you. SEEK IMMEDIATE MEDICAL ATTENTION IF: There is more than a spotting of blood in your stool. There is abdominal distention (your abdomen is swollen). There is vomiting. You have a temperature over 101.5 F. There is abdominal pain or discomfort that is severe or gets worse throughout the day. Follow Up Care 09/10/2023 12:37:51 With:Deep DACOSTA, YOGESH Escobar, [facility] Address: When: Unknown Comments:Call for any problems. Office will call to schedule follow up appointment [facility] 12-27-2023 Note Patient Education - Text Endoscopy Care After Procedure Please read the instructions outlined below and refer to this sheet in the next few weeks. These discharge instructions provide you with general information on caring for yourself after you leave the hospital. Your doctor may also give you specific instructions. While your treatment has been planned according to the most current medical practices available, unavoidable complications occasionally occur. If you have any problems or questions after discharge, please call your doctor. ACTIVITY ? You may resume your regular activity but move at a slower pace for the next 24 hours. ? Take frequent rest periods for the next 24 hours. ? Walking will help expel (get rid of) the air and reduce the bloated feeling in your abdomen. ? No driving for 24 hours (because of the anesthesia (medicine) used during the test). ? You may shower. ? Do not sign any important legal documents or operate any machinery for 24 hours (because of the anesthesia used during the test). NUTRITION ? Drink plenty of fluids. ? You may resume your normal diet. ? Begin with a light meal and progress to your normal diet. ? Avoid alcoholic beverages for 24 hours or as instructed by your caregiver. MEDICATIONS ? You may resume your normal medications unless your caregiver tells you otherwise. WHAT YOU CAN EXPECT TODAY ? You may experience abdominal discomfort such as a feeling of fullness or ?gas? pains. FOLLOW-UP ? Your doctor will discuss the results of your test with you. seek immediate medical attention if any of the following occur: ? Excessive nausea (feeling sick to your stomach) and/or vomiting. ? Severe abdominal pain and distention (swelling). ? Trouble swallowing. ? Temperature over 100 F (37.8? C). ? Rectal bleeding or vomiting of blood. Document Released: 12/25/2004 Document Re-Released: 11/04/2006 ExitCare? Patient Information ?2009 [employer]. Colonoscopy Care After Surgery Please read the instructions outlined below and refer to this sheet in the next few weeks. These discharge instructions provide you with general information on caring for yourself after you leave the hospital. Your doctor may also give you specific instructions. While your treatment has been planned according to the most current medical practices available, unavoidable complications occasionally occur. If you have any problems or questions after discharge, please call your doctor. ACTIVITY You may resume your regular activity, but move at a slower pace for the next 24 hours. Take frequent rest periods for the next 24 hours. Walking will help get rid of the air and reduce the bloated feeling in your abdomen (belly). No driving for 24 hours (because of the anesthesia (medicine) used during the test). You may shower. Do not sign any important legal documents or operate any machinery for 24 hours (because of the anesthesia used during the test). NUTRITION Drink plenty of fluids. You may resume your normal diet as instructed by your doctor. Begin with a light meal and progress to your normal diet. Heavy or fried foods are harder to digest and may make you feel nauseated (sick to your stomach). Avoid alcoholic beverages for 24 hours or as instructed. MEDICATIONS You may resume your normal medications unless your doctor tells you otherwise. WHAT YOU CAN EXPECT TODAY Some feelings of bloating in the abdomen. Passage of more gas than usual. Spotting of blood in your stool or on the toilet paper. FOLLOW-UP Your doctor will discuss the results of your test with you. SEEK IMMEDIATE MEDICAL ATTENTION IF: There is more than a spotting of blood in your stool. There is abdominal distention (your abdomen is swollen). There is vomiting. You have a temperature over 101.5 F. There is abdominal pain or discomfort that is severe or gets worse throughout the day. Gastroenterology Hemorrhoids Hemorrhoids are swollen veins that may develop: ? In the butt (rectum). These are called internal hemorrhoids. ? Around the opening of the butt (anus). These are called external hemorrhoids. Hemorrhoids can cause pain, itching, or bleeding. Most of the time, they do not cause serious problems. They usually get better with diet changes, lifestyle changes, and other home treatments. What are the causes? This condition may be caused by: ? Having trouble pooping (constipation). ? Pushing hard (straining) to poop. ? Watery poop (diarrhea). ? . ? Being very overweight (obese). ? Sitting for long periods of time. ? Heavy lifting or other activity that causes you to strain. ? Anal sex. ? Riding a bike for a long period of time. What are the signs or symptoms? Symptoms of this condition include: ? Pain. ? Itching or soreness in the butt. ? Bleeding from the butt. ? Leaking poop. ? Swelling in the area. ? One or more lumps around the opening o (more content not included)... [facility] 12-27-2023 Note Endoscopic Procedure Report - Other Patient: KATERYNA HERRING Age: 53 years Sex: Male : 1970 Associated Diagnoses: None Author: Amelia Adame MD Pre-Procedure Procedure Date 12/27/2023 10:50:00 . Procedure Type: Colonoscopy with removal of tumor(s), polyp(s), or other lesion(s) by cold snare technique. Procedure provider Performed by Amelia Adame MD. Current history and physical Reviewed. Colonoscopy ([id number]). Comments: 09/10/2023 11:58 EDT Radha Lopez Per patient over 10 years ago.. Past Medical History No active or resolved past medical history items have been selected or recorded.. Family History Heart murmur Mother . Procedure History Colonoscopy ([id number]). Comments: 09/10/2023 11:58 LASHAYT Radha Lopez Per patient over 10 years ago.. Colorectal neoplasm risk assessment High risk Previous history of polyps. . Informed Consent After discussing the rationale, risks and benefits, and alternatives to this procedure, the patient provided signed consent for the procedure. Pre-procedure diagnosis: History of colon polyps. Medications (Selected) Inpatient Medications Ordered Sodium Chloride 0.9% IV Radha 1000 mL 1,000 mL: 1,000 mL, IV, 20 mL/hr, Routine, Start date 12/27/23 6:50:00 EDT, 50 hour(s), Total volume (mL): 1,000 Prescriptions Prescribed omeprazole 40 mg Cap-DR: 40 mg = 1 cap(s), Oral, Daily, # 90 cap(s), Refills(s) 3, Pharmacy: [facility]/pharmacy #[id number], 182, cm, 12/27/23 9:54:00 EDT, Height/Length Dosing, 96.1, kg, 12/27/23 9:54:00 EDT, Weight Dosing Documented Medications Documented Pantoprazole [address] Tab: 40 mg = 1 tab(s), Oral, Daily, Refills(s) 0, Control of stomach acid Toprol XL 50 mg Tab-ER: 50 mg = 1 tab(s), Oral, Daily, 0 Refill(s), Refills(s) 0 albuterol HFA 90 mcg/inh MDI: Refill(s) 0, 0 Refill(s), Shortness of breath or wheezing budesonide-formoterol 80 mcg-4.5 mcg/inh Inh Aer w/adapter: 2 puff(s), Inhalation, Refill(s) 0, 0 Refill(s), Shortness of breath or wheezing paroxetine 40 mg Tab: 40 mg = 1 tab(s), Oral, Daily, Refills(s) 0 ASA Classification: Class II. . Monitoring: See anesthesia record. . Procedure The procedure was performed in the hospital. See anesthesia record for sedation given during procedure. The patient was positioned starting in the left lateral decubitus position. Endoscope type used was an adult-size. The endoscope was lubricated then introduced through the anus. The scope was advanced to the terminal ileum. No difficulties encountered during the procedure. The bowel preparation quality was adequate (see polyps greater than or equal to 6 millimeters). The patient tolerated the procedure well. Time to Cecum: 3 min Withdrawal time 25 min Last colonoscopy: 10 years ago (report not available) Findings 1. Small internal and external hemorrhoids 2. 3 mm sessile polyp in the cecum, resected with cold snare completely and retrieved 3. 2 small polyps in the descending and sigmoid colon, 4-7 mm in size, resected with cold snare completely and retrieved 4. Normal examined terminal Images Procedure images: Rec_hd_video___[id number]. jpg Rec_hd_video__[id number]. jpg Rec_hd_video___[id number]. jpg Rec_hd_video__[id number]. jpg Rec_hd_video_09_48_33_400. jpg Rec1_hd_video_2023__02T09_[id number]. jpg Rec1_hd_video_2023__02T09_47_[id number]. jpg Rec1_hd_video_2023__02T09_46_[id number]. jpg Rec1_hd_video_2023__02T09_46_[id number]. jpg Rec1_hd_video_2023__02T09_46_[id number]. jpg Rec1_hd_video_2023__02T09_43_[id number]. jpg Rec1_hd_video_2023__02T09_37_[id number]. jpg Rec1_hd_video_2023__02T09_35_[id number]. jpg Rec1_hd_video_2023__02T09_34_[id number]_402. jpg Rec1_hd_video_2023__02T09_33_[id number]. jpg Rec1_hd_video_2023__02T09_33_12_021. jpg . Post-Procedure Complications: none. Estimated blood loss: Minimal. Specimens: sent to pathology. Devices/ implants: none left in place. Impression and Plan 1. Small internal and external hemorrhoids 2. 3 mm sessile polyp in the cecum, resected with cold snare completely and retrieved 3. 2 small polyps in the descending and sigmoid colon, 4-7 mm in size, resected with cold snare completely and retrieved 4. Normal examined terminal Recommendations: Repeat colonoscopy:: In 3 years. Fo (more content not included)... [facility] Comment on above: Result Comment: Elec tronically Signed By: Deep DACOSTA, Amelia Lipscomb\.br\Date and Time Signed: 12/27/23 10:51 EDT Other Comment: Brittany knapp Attachment - attachment storage system not supported [id number] Can be viewed in source system Missing Attachment - attachment storage system not supported [id number] Can be viewed in source system Missing Attachment - attachment storage system not supported [id number] Can be viewed in source system Missing Attachment - attachment storage system not supported [id number] Can be viewed in source system Missing Attachment - attachment storage system not supported [id number] Can be viewed in source system Missing Attachment - attachment storage system not supported [id number] Can be viewed in source system Missing Attachment - attachment storage system not supported [id number] Can be viewed in source system Missing Attachment - attachment storage system not supported [id number] Can be viewed in source system Missing Attachment - attachment storage system not supported [id number] Can be viewed in source system Missing Attachment - attachment storage system not supported [id number] Can be viewed in source system Missing Attachment - attachment storage system not supported [id number] Can be viewed in source system Missing Attachment - attachment storage system not supported [id number] Can be viewed in source system Missing Attachment - attachment storage system not supported [id number] Can be viewed in source system Missing Attachment - attachment storage system not supported [id number] Can be viewed in source system Missing Attachment - attachment storage system not supported [id number] Can be viewed in source system Missing Attachment - attachment storage system not supported [id number] Can be viewed in source system 12-27-2023 Note Endoscopic Procedure Report - Other Patient: KATERYNA HERRING Age: 53 years Sex: Male : 1970 Associated Diagnoses: None Author: Amelia Adame MD Pre-Procedure Procedure Date 12/27/2023 10:17:00 . Procedure Type: Esophagogastroduodenoscopy with biopsy. Procedure provider Performed by Amelia Adame MD. Current history and physical Documented on chart. Informed Consent After discussing the rationale, risks and benefits, and alternatives to this procedure, the patient provided signed consent for the procedure. Pre-procedure diagnosis: GERD. Medications Anticoagulant/antiplatelet None. ASA Classification: Class II. . Monitoring: See anesthesia record. . Procedure The procedure was performed in the hospital. See anesthesia record for sedation given during procedure. The patient was positioned starting in the left lateral decubitus position and with safety measures. Endoscope type used was an adult-size, introduced orally, advanced to the 3rd portion of the duodenum. No difficulty was encountered during the procedure. Views were excellent. The patient tolerated the procedure well. Findings 1. Esophageal landmarks identified, normal examined esophagus 2. Mild patchy erythema in the antrum with 2 small ulcers in the distal gastric body along the greater curvature, 5 mm in size with eschar on top, random biopsies were taken to rule out H. pylori 3. Normal examined duodenum Images Procedure images: Rec1_hd_video_2023__T09__46_016. jpg Rec1_hd_video_2023__02T09__14_028. jpg Rec1_hd_video_2023__T09__07_866. jpg Rec1_hd_video_4__02T09__04_406. jpg Rec1_hd_video_2023__02T09_24_50_399. jpg Rec1_hd_video_2023__02T09_24_44_193. jpg Rec1_hd_video_2023__02T09_24_37_616. jpg Rec1_hd_video_2023__02T09_24_29_620. jpg Rec1_hd_video_2023__02T09_24_19_508. jpg Rec1_hd_video_2023__02T09_24_13_469. jpg Rec1_hd_video_2023__02T09_24_08_402. jpg Rec1_hd_video_4__02T09_23_59_560. jpg . Post-Procedure Complications: none. Estimated blood loss: minimal. Specimens: sent to pathology. Devices/ implants: none left in place. Impression and Plan 1. Esophageal landmarks identified, normal examined esophagus 2. Mild patchy erythema in the antrum with 2 small ulcers in the distal gastric body along the greater curvature, 5 mm in size with eschar on top, random biopsies were taken to rule out H. pylori 3. Normal examined duodenum Recommendations: -Resume previous diet -Resume home medications -Await pathology results, follow in GI clinic in 1-2 after discharge -Avoid NSAIDs -Start omeprazole 40 mg daily -Repeat EGD in 2 to 3 months to ensure ulcer is healing [facility] Comment on above: Result Comment: Elec tronically Signed By: Deep DACOSTA, Amelia Lipscomb\.br\Date and Time Signed: 12/27/23 10:18 EDT Other Comment: Brittany knapp Attachment - attachment storage system not supported [id number] Can be viewed in source system Missing Attachment - attachment storage system not supported [id number] Can be viewed in source system Missing Attachment - attachment storage system not supported [id number] Can be viewed in source system Missing Attachment - attachment storage system not supported [id number] Can be viewed in source system Missing Attachment - attachment storage system not supported [id number] Can be viewed in source system Missing Attachment - attachment storage system not supported [id number] Can be viewed in source system Missing Attachment - attachment storage system not supported [id number] Can be viewed in source system Missing Attachment - attachment storage system not supported [id number] Can be viewed in source system Missing Attachment - attachment storage system not supported [id number] Can be viewed in source system Missing Attachment - attachment storage system not supported [id number] Can be viewed in source system Missing Attachment - attachment storage system not supported [id number] Can be viewed in source system Missing Attachment - attachment storage system not supported [id number] Can be viewed in source system 09-10-2023 Hospital Discharge instructions Patient Education 09/10/2023 11:47:16 Colonoscopy, Adult Colonoscopy, Adult A colonoscopy is a procedure to look at the entire large intestine. This procedure is done using a long, thin, flexible tube that has a camera on the end. You may have a colonoscopy: As a part of normal colorectal screening. If you have certain symptoms, such as: ?A low number of red blood cells in your blood (anemia). ?Diarrhea that does not go away. ?Pain in your abdomen. ?Blood in your stool. A colonoscopy can help screen for and diagnose medical problems, including: An abnormal growth of cells or tissue (tumor). Abnormal growths within the lining of your intestine (polyps). Inflammation. Areas of bleeding. Tell your health care provider about: Any allergies you have. All medicines you are taking, including vitamins, herbs, eye drops, creams, and meqe-ftj-ucmthyv medicines. Any problems you or family members have had with anesthetic medicines. Any bleeding problems you have. Any surgeries you have had. Any medical conditions you have. Any problems you have had with having bowel movements. Whether you are or may be . What are the risks? Generally, this is a safe procedure. However, problems may occur, including: Bleeding. Damage to your intestine. Allergic reactions to medicines given during the procedure. Infection. This is rare. What happens before the procedure? Eating and drinking restrictions Follow instructions from your health care provider about eating or drinking restrictions, which may include: A few days before the procedure: ?Follow a low-fiber diet. ?Avoid nuts, seeds, dried fruit, raw fruits, and vegetables. 1 3 days before the procedure: ?Eat only gelatin dessert or ice pops. ?Drink only clear liquids, such as water, clear juice, clear broth or bouillon, black coffee or tea, or clear soft drinks or sports drinks. ?Avoid liquids that contain red or purple dye. The day of the procedure: ?Do not eat solid foods. You may continue to drink clear liquids until up to 2 hours before the procedure. ?Do not eat or drink anything starting 2 hours before the procedure, or within the time period that your health care provider recommends. Bowel prep If you were prescribed a bowel prep to take by mouth (orally) to clean out your colon: Take it as told by your health care provider. Starting the day before your procedure, you will need to drink a large amount of liquid medicine. The liquid will cause you to have many bowel movements of loose stool until your stool becomes almost clear or light green. If your skin or the opening between the buttocks (anus) gets irritated from diarrhea, you may relieve the irritation using: ?Wipes with medicine in them, such as adult wet wipes with aloe and vitamin E. ?A product to soothe skin, such as petroleum jelly. If you vomit while drinking the bowel prep: ?Take a break for up to 60 minutes. ?Begin the bowel prep again. ?Call your health care provider if you keep vomiting or you cannot take the bowel prep without vomiting. To clean out your colon, you may also be given: ?Laxative medicines. These help you have a bowel movement. ?Instructions for enema use. An enema is liquid medicine injected into your rectum. Medicines Ask your health care provider about: Changing or stopping your regular medicines or supplements. This is especially important if you are taking iron supplements, diabetes medicines, or blood thinners. Taking medicines such as aspirin and ibuprofen. These medicines can thin your blood. Do not take these medicines unless your health care provider tells you to take them. Taking rclo-vii-kkqgpgj medicines, vitamins, herbs, and supplements. General instructions Ask your health care provider what steps will be taken to help prevent infection. These may include washing skin with a germ-killing soap. If you will be going home right after the procedure, plan to have a responsible adult: ?Take you home from the hospital or clinic. You will not be allowed to drive. ? Care for you for the time you are told. What happens during the procedure? An IV will be inserted into one of your veins. You will be given a medicine to make you fall asleep (general anesthetic). You will lie on your side with your knees bent. A lubricant will be put on the tube. Then the tube will be: ?Inserted into your anus. ?Gently eased through all parts of your large intestine. Air will be sent into your colon to keep it open. This may cause some pressure or cramping. Images will be taken with the camera and will appear on a screen. A small tissue sample may be removed to be looked at under a microscope (biopsy). The tissue may be sent to a lab for testing if any signs of problems are found. If small polyps are found, they may be removed and checked for cancer cells. When the procedure is finished, the tube will be removed. The procedure may vary among health care providers and hospitals. What happens after the procedure? Your blood pressure, heart rate, breathing rate, and blood oxygen level will be monitored until you leave the hospital or clinic. You may have a small amount of blood in your stool. You may pass gas and have mild cramping or bloating in your abdomen. This is caused by the air that was used to open your colon during the exam. If you were given a sedative during the procedure, it can affect you for several hours. Do not drive or operate machinery until your health care provider says that it is safe. It is up to you to get the results of your procedure. Ask your health care provider, or the department that is doing the procedure, when your results will be ready. Summary A colonoscopy is a procedure to look at the entire large intestine. Follow instructions from your health care provider about eating and drinking before the procedure. If you were prescribed an oral bowel prep to clean out your colon, take it as told by your health care provider. During the colonoscopy, a flexible tube with a camera on its end is inserted into the anus and then passed into all parts of the large intestine. This information is not intended to replace advice given to you by your health care provider. Make sure you discuss any questions you have with your health care provider. Document Revised: 05/07/2022 Document Reviewed: 01/03/2022 [employer] Patient Education 2022 [employer]. Follow Up Care 08/28/2023 15:10:29 With:Lulu Silva CNP Address: When:1 to 2 weeks Comments:Following colonoscopy. [facility] 09-10-2023 Note Radiology Colonoscopy, Adult A colonoscopy is a procedure to look at the entire large intestine. This procedure is done using a long, thin, flexible tube that has a camera on the end. You may have a colonoscopy: ? As a part of normal colorectal screening. ? If you have certain symptoms, such as: ? A low number of red blood cells in your blood (anemia). ? Diarrhea that does not go away. ? Pain in your abdomen. ? Blood in your stool. A colonoscopy can help screen for and diagnose medical problems, including: ? An abnormal growth of cells or tissue (tumor). ? Abnormal growths within the lining of your intestine (polyps). ? Inflammation. ? Areas of bleeding. Tell your health care provider about: ? Any allergies you have. ? All medicines you are taking, including vitamins, herbs, eye drops, creams, and eajk-sth-vkandny medicines. ? Any problems you or family members have had with anesthetic medicines. ? Any bleeding problems you have. ? Any surgeries you have had. ? Any medical conditions you have. ? Any problems you have had with having bowel movements. ? Whether you are or may be . What are the risks? Generally, this is a safe procedure. However, problems may occur, including: ? Bleeding. ? Damage to your intestine. ? Allergic reactions to medicines given during the procedure. ? Infection. This is rare. What happens before the procedure? Eating and drinking restrictions Follow instructions from your health care provider about eating or drinking restrictions, which may include: ? A few days before the procedure: ? Follow a low-fiber diet. ? Avoid nuts, seeds, dried fruit, raw fruits, and vegetables. ? 1?3 days before the procedure: ? Eat only gelatin dessert or ice pops. ? Drink only clear liquids, such as water, clear juice, clear broth or bouillon, black coffee or tea, or clear soft drinks or sports drinks. ? Avoid liquids that contain red or purple dye. ? The day of the procedure: ? Do not eat solid foods. You may continue to drink clear liquids until up to 2 hours before the procedure. ? Do not eat or drink anything starting 2 hours before the procedure, or within the time period that your health care provider recommends. Bowel prep If you were prescribed a bowel prep to take by mouth (orally) to clean out your colon: ? Take it as told by your health care provider. Starting the day before your procedure, you will need to drink a large amount of liquid medicine. The liquid will cause you to have many bowel movements of loose stool until your stool becomes almost clear or light green. ? If your skin or the opening between the buttocks (anus) gets irritated from diarrhea, you may relieve the irritation using: ? Wipes with medicine in them, such as adult wet wipes with aloe and vitamin E. ? A product to soothe skin, such as petroleum jelly. ? If you vomit while drinking the bowel prep: ? Take a break for up to 60 minutes. ? Begin the bowel prep again. ? Call your health care provider if you keep vomiting or you cannot take the bowel prep without vomiting. ? To clean out your colon, you may also be given: ? Laxative medicines. These help you have a bowel movement. ? Instructions for enema use. An enema is liquid medicine injected into your rectum. Medicines Ask your health care provider about: ? Changing or stopping your regular medicines or supplements. This is especially important if you are taking iron supplements, diabetes medicines, or blood thinners. ? Taking medicines such as aspirin and ibuprofen. These medicines can thin your blood. Do not take these medicines unless your health care provider tells you to take them. ? Taking leun-fxp-qtpeutu medicines, vitamins, herbs, and supplements. General instructions ? Ask your health care provider what steps will be taken to help prevent infection. These may include washing skin with a germ-killing soap. ? If you will be going home right after the procedure, plan to have a responsible adult: ? Take you home from the hospital or clinic. You will not be allowed to drive. ? Care for you for the time you are told. What happens during the procedure? ? An IV will be inserted into one of your veins. ? You will be given a medicine to make you fall asleep (general anesthetic). ? You will lie on your side with your knees bent. ? A lubricant will be put on the tube. Then the tube will be: ? Inserted into your anus. ? Gently eased through all parts of your large intestine. ? Air will be sent into your colon to keep it open. This may cause some pressure or cramping. ? Images will be taken with the camera and will appear on a screen. ? A small tissue sample may be removed to be looked at under a microscope (biopsy). The tissue may be sent to a lab for testing if any signs of problems are found. ? If small polyps are found, they may be removed and checked for cancer cells. (more content not included)... [facility] 06-28-2023 History of Present illness Narrative Images from the original note were not included. Patient: Kateryna Herring : 1970 PCP: Pedro Luis Interiano MD SUBJECTIVE This is a 53 y.o. male that presents today for follow up a nail avulsion /incision and drainage of abscess 2nd and 3rd digit left Patient is doing well they deny fever chills nausea vomiting. They deny any pain they have been compliant with her postoperative care they have been soaking the nail as directed and applying topical antibiotics. Allergies: No Known Allergies Past Medical History: History reviewed. No pertinent past medical history. Medications: Current Outpatient Medications: albuterol HFA 90 mcg/act inhaler, INHALE 1 PUFF INTO THE LUNGS EVERY 4 HOURS NEEDED FOR 30 DAYS, Disp: , Rfl: PARoxetine (Paxil) 40 MG tablet, Take 40 mg by mouth in the morning., Disp: , Rfl: ROS: Constitutional: Denies fever, chills, nausea, vomiting GI: Denies abdominal pain, cramping, loose stool, gastric ulcers Musculoskeletal: Denies low back pain, knee pain, systemic arthritis Neurologic: Denies burning, tingling, transient paralysis OBJECTIVE Physical examination: DERM: Positive hair growth to b/l feet with good skin turgor noted. Nail avulsion site is healing well no signs of infection no drainage no malodor. Mild fibrotic tissue noted within the nail fold. No ascending cellulitis or lymphangitis noted. VASC: Palpable pedal pulsed b/l with warm to cool tibia to toes b/l NEURO: Gross sensation intact digits 1-10 and b/l feeT MUSCULOSKELETAL: Muscle strength is +5 over 5 all intrinsic and extrinsic muscles tested ASSESSMENT 1. Onychocryptosis 2. Abscess, toe, left 3. Pain in left toe(s) PLAN Patient may discontinue soaking the nail. He is to apply topical Betadine to the area daily keep the area open to air follow up with me in 2 weeks for reassessment HUSSAIN Mark documented in this encounter [facility] 05-28-2023 Evaluation note Encounter Date Diagnosis Assessment Notes May, Wellness examination (ICD-10 - Z00.00) Healthy diet and exercise. Reviewed age-appropriat e preventive testing recommended. May, Simple chronic bronchitis (ICD-10 - J41.0) Instructed on smoking cessation. No ER visits for AE. COntinue LABA/ICS Rare use of GEN May, Cigarette nicotine dependence without complication (ICD-10 - F17.210) This patient has been encouraged to quit tobacco use immediately. They are aware of the hazards associated with tobacco use, including but not limited to respiratory infections, vascular disease and cancers. May, Primary hypertension (ICD-10 - I10) This patient is instructed to consume a healthy, low-fat, low-salt diet. They are also encouraged to continue exercise to achieve/mainta in a normal BMI. Patient is instructed on home BP measurements: - rest for 5 minutes w/o talking- positioned w/ feet on floor and arm supported- average best 2/3 readings w/ goal < 135/85 Stop in office over next couple weeks for recheck May, Bilateral carotid bruits (ICD-10 - R09.89) ASA 81mg qd. Checking Cholesterol and will recommend Statin therapy. 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 Inspect hands for ulcerations. Wear gloves, keep hands warm. CCB? May, Recurrent major depressive disorder, in full remission (ICD-10 - F33.42) Stable, continue healthy diet and exercise May, Screening PSA (prostate specific antigen) (ICD-10 - Z12.5) May, Colon cancer screening (ICD-10 - Z12.11) [facility] Other 12-10-2023 Evaluation note* Encounter Date Diagnosis Assessment Notes Treatment Notes Treatment Clinical Notes Apr, Chronic bronchitis with productive mucopurulent cough (ICD-10 - J41.1) [facility] Other 05-08-2023 Evaluation note* Encounter Date Diagnosis Assessment Notes Treatment Notes Treatment Clinical Notes September, Acute bronchitis due to other specified organisms (ICD-10 - J20.8) Instructed to use Robitussin or Mucinex for cough, saline or Flonase NS for congestion, Tylenol for pain and fever. continue GEN as needed September, Cigarette nicotine dependence without complication (ICD-10 - F17.210) This patient has been encouraged to quit tobacco use immediately. They are aware of the hazards associated with tobacco use, including but not limited to respiratory infections, vascular disease and cancers. [facility] Other Evaluation + Plan note Future Appointments Appointment Date:12/13/2023 09:30:00 AM Scheduled Provider: Location:[facility] Appointment Type:Surgery [facility] Evaluation noteNo InformationNort Recordant Other Evaluation note* Diagnosis Abscess, toe, left- Primary Onychocryptosis Ingrowing nail Pain in left toe(s) documented in this encounter [facility] - Reported* Type Description Date Medical History TYLER (generalized anxiety disorde r) Medical History Chronic bronchitis with producti ve mucopurulent cough Medical History History of empyema of pleura Medical History Cigarette nicotine dependence, u ncomplicated Medical History Major depression in remission Medical History Gastroesophageal ref lux disease with esophagitis without hemorrhage Medical History 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 Surgical History DECORTICATION, LUNG Surgical History COLONOSCOPY Surgical History EGD Hospitalization History SEE SURGICAL HX [facility] Other Hospital course Narrative No data available for this section [facility] Progress note No data available for this section [facility] Reason for referral (narrative)* Reason Referral for screeni ng colonoscopy Diagnosis 1 Colon cancer screeni ng (Z12.11) Referral Organization [facility] Referring Provider First Name Pedro Luis Referring Provider Last Name Jaydon Referring Provider Specialty Internal Me dicine Referred Organization [facility] [place] [address] [place] Referred Provider Specialty Gastroentero logy Referral Priority Routine General Notes Mr. Herring is being referred for screening colonoscopy. He denies change in appetite, weight or bowel habits. He denies abdominal pain, melena or hematochezia. He has no personal or family hx of polyps or cancer. [facility] Other Summary Purpose Family History No Family History Records FoundNo Family History Records FoundNo Family History Records Found No data available for this section No data available for this section No Family History Records FoundNo Family History Records FoundNo Family History Records Found Advance Directives No Advanced Directives Records FoundNo Advanced Directives Records FoundNo Advanced Directives Records FoundNo Advanced Directives Records FoundNo Advanced Directives Records FoundNo Advanced Directives Records Found Additional Source Comments (unrecognized sect ion and content) No Status Records FoundNo Status Records FoundNo Status Records FoundNo Status Records FoundNo Status Records FoundNo Status Records Found INFORMATION SOURCE (unrecogn ized section and content) DATE CREATED AUTHOR 07/09/2021 [facility] DATE CREATED AUTHOR AUTHOR'S ORGANIZ ATION 08/16/2022 [facility] DATE CREATED AUTHOR AUTHOR'S ORGANIZ ATION 07/14/2023 [facility] EPIC DATE CREATED AUTHOR AUTHOR'S ORGANIZ ATION 01/02/2024 [facility] DATE CREATED AUTHOR AUTHOR'S ORGANIZ ATION 01/14/2024 [facility] DATE CREATED AUTHOR AUTHOR'S ORGANIZ ATION 01/19/2024 [facility] REASON FOR VISIT (unrecogniz ed section and content) Reason Comments Follow-up Left / nail av ulsion FU Care Teams (unrecognized sec tion and content) Manager Fire Relationship Specialty Start Date End Date Pedro Luis Interiano MD [address] [place] [id number] PCP - General Internal Medicine 06/14/23 Manager Fire Relationship Specialty Start Date End Date Pedro Luis Interiano MD [address] [place] [id number] PCP - General Internal Medicine 06/14/23 FOR RECORDS PERTAINING TO PATIENTS WHO ARE OR HAVE BEEN ENROLLED IN A CHEMICAL DEPENDENCY/SUBSTANCEABUSE PROGRAM, SOME INFORMATION MAY BE OMITTED. This clinical summary was aggregated from multiple sources. Caution should be exercised in using it in the provision of clinical care. This summary normalizes information from multiple sources, and as a consequence, information in this document may materially change the coding, format and clinical context of patient data. In addition, data may be omitted in some cases. CLINICAL DECISIONS SHOULD BE BASED ON THE PRIMARY CLINICAL RECORDS. [employer] provides no warranty or guarantee of the accuracy or completeness of information in this document.
[2024-07-10 08:35] LABS: Basophils Absolute Auto 0.1 10^3/uL (0.0-0.1); Basophils Percent Auto 0.6 % (0.2-2.0); Eosinophils Absolute Auto 0.2 10^3/uL (0.0-0.7); Eosinophils Percent Auto 2.2 % (0.9-7.0); Hematocrit 46.8 % (42.0-54.0); Hemoglobin 16.4 g/dL (14.0-18.0); Immature Granulocytes Abs Auto 0.01 10^3/uL (0.00-0.03); Immature Granulocytes Pct Auto 0.1 % (0.0-0.5); Lymphocytes Absolute Auto 1.6 10^3/uL (1.2-3.8); Lymphocytes Percent Auto 18.3 % (20.5-60.0); Mean Corpuscular Hemoglobin 30.9 pg (25.9-34.0); Mean Corpuscular Volume 88.3 fL (80.0-94.0); Mean Platelet Volume 8.9 fL (9.5-13.5); Monocytes Absolute Auto 0.5 10^3/uL (0.3-0.8); Monocytes Percent Auto 6.1 % (1.7-12.0); Neutrophils Absolute Auto 6.2 10^3/uL (1.4-6.5); Neutrophils Percent Auto 72.7 % (43.0-75.0); Platelet Count 260 10^3/uL (150-450); White Blood Count 8.6 10^3/uL (4.0-11.0)
[2024-07-10 08:56] LABS: Alanine Aminotransferase 28 U/L (16-63); Albumin Level 3.5 g/dL (3.4-5.0); Alkaline Phosphatase 121 U/L (46-116); Anion Gap 9.8; Aspartate Amino Transferase 20 U/L (15-37); BUN Creatinine Ratio 11.4; Bilirubin Total 0.3 mg/dL (0.2-1.0); Calcium 8.5 mg/dL (8.5-10.1); Carbon Dioxide 29.3 mmol/L (21.0-32.0); Chloride 108 mmol/L (98-107); Chol HDL Ratio 3.8; Cholesterol 132 mg/dL (<=200); Estimated GFR (African America >60 (>=60 mL/min/1.73m^2); Estimated GFR (Non-African Ame >60 (>=60 mL/min/1.73m^2); Globulin 3.5 g/dL; Glucose 106 mg/dL (74-106); HDL Cholesterol 35 mg/dL (40-60); Potassium 4.1 mmol/L (3.5-5.1); Sodium 143 mmol/L (136-145); Triglycerides 113 mg/dL (<=150); VLDL CHOLESTEROL 22.6 mg/dL
[2024-07-10 10:24] LABS: Prostate Specific Antigen Scrn 0.16 ng/mL (<=4.00)
== END 2024-07-10 08:18 | disposition home or self-care (01) ==
LOC: LAB 08:19
PROVIDERS: PCP Internal Medicine; Visit Provider Internal Medicine
DX: Z00.00 Encounter for general adult medical examination without abnormal findings (principal)
CPT/HCPCS: 36415; 80053; 80061; 85025; G0103